=== PATIENT | female | born 1955 | race Caucasian/White ===

== ENCOUNTER 2016-11-28 08:00 | Inpatient (IN) | payer MEDICAID, OTHER ==
[2016-11-28] VITALS (12 sets, daily range): BP systolic 149–214; BP diastolic 68–129; PULSE 67–93; RESP 16–28; O2SAT 87–98
[~2016-11-28] VITALS: Ht 170.2 cm; Wt 82.9 kg
--- NOTE | 2016-11-28 08:03 | ED.REPORT ---
HPI-Stroke / CVA Nov 28, 2016 ED Provider: Renea Burton MD Pt is a 61 y.o. female with a hx of paroxysmal A-fib, COPD, and HTN who presents to the ED via EMS with aphasia her last known normal at 2100 yesterday. Pt woke up unable to speak, when EMS arrived on scene she was following commands. They state pt has been waxing and waning in understanding and cooperation. They also noted right-sided facial droop. Upon examination pt is able to nod her head yes and no to questions but still has expressive aphasia and right-sided facial droop. She is currently denying any pain. Pt is on Pradaxa. Nursing Notes Stated Complaint: POSS STROKE Chief Complaint: Neuro Symptoms/ Deficits Nursing Notes Reviewed: Yes Allergies: Coded Allergies: No Known Allergies (Unverified , 11/28/16) General Time Seen by Provider: 08:04 Chief Complaint Unable to speak Hx Obtained From: Daughter, EMS Unable to Obtain Hx: Patient condition Arrived By: Ambulance Time last known well 2099 Sudden in Onset?: Yes Context of Onset: During sleep Symptom Duration: Since onset Progression Since Onset: Unchanged, Constant Risk Factors )( TPA Administration/Criteria Stroke Thrombolytic Therapy : TPA Considered: Yes TPA Administered Intravenously: No, exclusion criteria (LKN 2100, Pradaxa) NIH Stroke Scale Level of Consciousness: Alert and responsive (0) Ask Month & Age: Aphasic (2) Open/Close Eyes/Hand [employer]: Performs 1 task (1) Horizontal EO Movements: None (0) Visual Angel: No visual loss (0) Facial Palsy: Minor paralysis (1) (Right) Right Arm Motor Drift (10s): Drift, not touch bed (1) Left Arm Motor Drift (10s): No drift 10 sec (0) Right Leg Motor Drift (5s): Drift, not touch bed (1) Left Leg Motor Drift (5s): No drift 5 sec (0) Limb Ataxia FNF/Heel-Feng: Ataxia in 2 limbs (2) (Receptive aphasia?) Sensation (Arms/Legs/Face): No sensory loss (0) Language Aphasia: Severe, fragmented (2) Dysarthria: Mute, anarthric (2) Extinction/Inattention: No exctinct/inattent (0) NIHSS Score: 12 Time NIHSS Performed: 08:47 Date NIHSS Performed: Nov 28, 2016 Past Medical History Past Medical History Reports: COPD, Hyperlipidemia, Hypertension Reports: Atrial fibrillation (Paroxysmal) Past Surgical History Reports: Hysterectomy Reports: Back/neck surgery Smoking History Current Every Day Smoker 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 Physical Exam Initial Vital Signs Vital Signs (First) Date Time Temp Pulse Resp B/P Pulse Ox O2 Delivery O2 Flow Rate FiO2 11/28/16 08:02 36.8 93 22 155/129 97 Room Air 11/28/16 10:05 2 Initial VS: Reviewed Abdomen / GI: No distention Extremities: Vascular intact, Neuro intact Skin: Warm, Dry, No cyanosis General/Constitutional: Awake, Alert, Well appearing, Well developed, Well hydrated, Well nourished, Not toxic appearing Behavior: Positive: Agitated Head / Eyes: Atraumatic, Normocephalic Right-sided facial droop Neck: Atraumatic Cardiovascular: Heart rate NL, Regular rhythm, Heart sounds NL, Peripheral circulation NL Speech: Positive: Expressive aphasia Cranial Nerve Deficit: Positive: 7 - lower/asymetric smile, 7 - upper/ asymetric frown Cerebellar Dysfunction: Positive: Finger-nose abnl NIH score of 12 Interpretation & Diagnostics Lab Results Interpretation Result Diagram: 11/28/16 0815 11/28/16 0815 Test 11/28/16 08:15 White Blood Count 12.3th/mm3 (3.8-10.1) Red Blood Count 5.11mil/mm3 (3.90-5.20) Hemoglobin 15.7g/dL (12.0-15.6) Hematocrit 47.3% (35.0-46.0) Mean Corpuscular Volume 92.6fL (81-100) Mean Corpuscular Hemoglobin 30.7pg (27.0-35.0) Mean Corpuscular Hemoglobin Concent 33.2% (32.0-37.0) Red Cell Distribution Width 13.2% (12.3-15.4) Platelet Count 291bil/L (150-400) Neutrophils (%) (Auto) 65.6% (40-74) Lymphocytes (%) (Auto) 25.3% (14-46) Monocytes (%) (Auto) 7.6% (4-12) Eosinophils (%) (Auto) 1.1% (0-5) Basophils (%) (Auto) 0.2% (0-3) Prothrombin Time 10.0sec (8.1-12.5) Prothromb Time International Ratio 0.94ratio Activated Partial Thromboplast Time 24.3sec (22.8-33.0) Sodium Level 136mEq/L (134-144) Potassium Level 5.3mEq/L (3.5-5.2) Chloride Level 96mEq/L (97-108) Carbon Dioxide Level 22mmol/L (18-29) Blood Urea Nitrogen 17mg/dL (8-27) Creatinine 0.67mg/dL (0.57-1.00) Estimat Glomerular Filtration Rate 129mL/min (>59) Glucose Level 122mg/dL (60-99) Calcium Level 9.7mg/dL (8.5-10.1) Total Bilirubin 0.3mg/dL (0.0-1.2) Aspartate Amino Transf (AST/SGOT) 33U/L (0-50) Alanine Aminotransferase (ALT/SGPT) 26U/L (0-32) Alkaline Phosphatase 105U/L (25-165) Troponin T 0.010ug/L (0.0-0.011) Total Protein 7.5g/dL (6.4-8.4) Albumin 4.3g/dL (3.4-5.0) ECG Interpretation ECG Interpretation: No ischemia Time: 11:43 Interpreted by: ED physician Normal ECG Interpretation: Normal ECG w/ rate of... (72), Normal rate, Normal sinus rhythm CT Head Interpretation PROCEDURE: CT ANGIO BRAIN NECK TPA IMPRESSION: 1. No acute intracranial abnormalities. 2. No hemodynamically significant lesions of the central intracranial vasculature. 3. 45-50% bilateral eccentric luminal stenosis of the proximal internal carotid arteries. 4. 2.8 cm irregular lateral right upper lobe nodule, suspicious for bronchogenic carcinoma. Additional 8 mm indeterminate medial right upper lobe nodule is also present. Findings were discussed with Dr. Burton by telephone at 1006 hr on 11/28/2016. Dictated by: Joe Davis M.D. on 11/28/2016 at 9:55 Approved by: Joe Davis M.D. on 11/28/2016 at 10:0 Re-Eval/Medical Decision Med Decision/Clinical Course 61-year-old woman presents with right sided facial droop right sided weakness and significant expressive aphasia. She awoke with symptoms so she is not a TPA candidate. She does have a history of paroxysmal atrial fibrillation and is unclear that she has been taking her anticoagulant regularly. She is in sinus rhythm on presentation this morning. Initial CT scan does not show any bleeding and follow-up CTA does not suggest any large vessel occlusions that might be amenable to percutaneous intervention. The CTA incidentally notes a spiculated greater than 2 cm nodule in the right upper lobe of her lung concerning for neoplasm. This is shared with her. Will need additional workup. Source of Hx: Old records Re-Evaluation/Progress #1: Time of Eval: 08:38 Re-Evaluation/Progress Note: Pt rechecked. Discussed CT imaging and performed NIH Stroke Scale. Re-Evaluation/Progress #2: Time of Eval: 10:28 Re-Evaluation/Progress Note: Pt rechecked. Discussed CT imaging results and plan for admit. Pt and family understand and agree with plan. Consultation : Referral / Consult Name: Bassam Harden MD Call Returned at: 11:31 Appliance Service Supervisor: Will see patient, Agrees with eval, Agrees with plan, Accepts admit Note: Discussed pt condition. Accepts admit. Counseled Regarding: Diagnosis, Lab results, Need for admission Patient Discharge & Departure Impression: Primary Impression: Stroke Additional Impression: Lung mass Disposition: ADMITTED TO HOSPITAL Discharge Condition All VS Reviewed: Yes Condition: Stable Scribe Attestation Portions of this note were transcribed by Maribel Turcios. I, Dr. Burton personally performed the history, physical exam and medical decision-making; I reviewed and confirmed the accuracy of the information in the transcribed note. Signed by: Khai Huitron, 11/28/16 and 1208 Renea Burton MD Nov 28, 2016 08:03 MARIBEL TURCIOS Nov 28, 2016 08:10
[2016-11-28] MEDS ORDERED: Labetalol 5 mg/mL 4 mL Inj IV PRN (08:10)
[2016-11-28 08:21] LABS: BASOPHILS % (AUTO) 0.2 % (0-3); EOSINOPHILS % (AUTO) 1.1 % (0-5); MONOCYTES % (AUTO) 7.6 % (4-12); Mean Corpuscular Hemoglobin 30.7 pg (27.0-35.0); Mean Corpuscular Volume 92.6 fL (81-100); NEUTROPHILS % (AUTO) 65.6 % (40-74); Platelet Count 291 bil/L (150-400)
[2016-11-28 08:45] LABS: INR 0.94 ratio
[2016-11-28 08:53] LABS: TROPONIN T 0.01 ug/L (0.0-0.011)
--- NOTE | 2016-11-28 10:08 | DRSVH ---
PROCEDURE: CT ANGIO BRAIN NECK TPA INDICATIONS: 61-year-old female with stroke symptoms. TECHNIQUE: After the administration of intravenous contrast, 1 mm thick sections acquired from the aortic arch t hrough the [place] of [place]. Post-contrast 4.5 mm thick sections then re-acquired from the foramen m agnum to the vertex. 3-dimensional ysvbequ-rqxjiruyh-czaiqeqkbs (MIP) and/or volume rendering reform ats were acquired of the central intracranial vasculature and neck separately. For radiation dose re duction, the following was used: automated exposure control, adjustment of mA and/or kV according to patient size. COMPARISON: None. FINDINGS: Image quality: Excellent. BRAIN: CSF spaces: Ventricles are normal in size and shape. Basal cisterns are patent. No extra-axial flu id collections. Brain: No midline shift. No intracranial bleeds or masses. Rendon-white matter interface appears int act. Skull and face: Calvarium and facial bones appear intact, without suspicious lesions. Orbits appear normal. Sinuses: Sinuses and mastoids are clear. HEAD CT ANGIOGRAPHY: Anterior circulation: Intracranial internal carotid arteries are normal in size and flow. The flow within the paired anterior cerebral arteries is normal and symmetric. The flow within the middle cer ebral arteries is normal and symmetric. The anterior communicating artery is seen. No aneurysms are seen. Posterior circulation: Visualized portions of the vertebral arteries demonstrate normal caliber, and join to form a normal appearing basilar artery. The left vertebral artery is dominant. Flow within the posterior cerebral arteries is normal and symmetric. No aneurysms are seen. NECK CT ANGIOGRAPHY: Carotid system: The great vessels demonstrate a conventional anatomy as they arise from the aortic a rc. The origins of the common carotid arteries appear patent. The common carotid arteries demonstr ate normal caliber and courses. There is calcified atherosclerotic plaque in both proximal internal carotid arteries, causing 45-50% luminal stenoses. The internal carotid arteries demonstrate normal calibers and courses more superiorly. Posterior circulation: The origins of the vertebral arteries both appear widely patent. The left ve rtebral artery is dominant. The more superior extracranial portions of both vertebral arteries also demonstrate normal courses and calibers. They join to form a normal appearing basilar artery. Soft tissues: Visualized neck soft tissues demonstrate no suspicious abnormalities. 2.8 x 2.7 x 2.0 cm irregular lateral right upper lobe nodule is present, demonstrating spiculated margins. A nearby medial right upper lobe 8 mm nodule is also present. Bones: No suspicious bony lesions. Visualized cervical spine appears normally aligned. IMPRESSION: 1. No acute intracranial abnormalities. 2. No hemodynamically significant lesions of the central intracranial vasculature. 3. 45-50% bilateral eccentric luminal stenosis of the proximal internal carotid arteries. 4. 2.8 cm irregular lateral right upper lobe nodule, suspicious for bronchogenic carcinoma. Additio nal 8 mm indeterminate medial right upper lobe nodule is also present. Findings were discussed with Dr. Burton by telephone at 1006 hr on 11/28/2016. Dictated by: Joe Davis M.D. on 11/28/2016 at 9:55 Approved by: Joe Davis M.D. on 11/28/2016 at 10:07
[2016-11-28] MEDS ORDERED: 0.9% Sodium Chloride 1,000 ML IV SCH ×2 (11:52→13:42)
[2016-11-28] MEDS ORDERED: Ondansetron 2 mg/mL 2 mL Inj IVPUSH PRN (11:55)
[2016-11-28] MEDS ORDERED: Polyethylene Glycol (PEG) 17 Gm Powder PO PRN (12:20)
[2016-11-28] MEDS ORDERED: Alum-Mag Hydrox-Simeth 30 mL Suspension PO PRN (12:20)
[2016-11-28] MEDS ORDERED: Labetalol 5 mg/mL 4 mL Inj IVPUSH PRN (12:20)
[2016-11-28] MEDS ORDERED: HYDROcodone-APAP 5-325 mg Tablet PO PRN (12:20)
[2016-11-28] MEDS ORDERED: Ondansetron 2 mg/mL 2 mL Inj IV PRN (12:20)
--- NOTE | 2016-11-28 12:59 | PCM.HPMED ---
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 fib who presented to the ED by EMS for evaluation of aphasia and right sided weakness. Her last known normal was 2100 yesterday per family. Patient woke up this morning and was unable to speak. When EMS was called, they noted that she was able to follow commands, and had a right-sided facial droop, but had severe expressive aphasia and was only able to answer questions by nodding her head. Of note, patient was recently diagnosed with atrial fibrillation, and is currently on Pradaxa, but may not be taking it consistently per daughter. In the ED her and NIHSS score was noted to be 12. TPA was not administered due to patient being on Pradaxa and uncertain timeframe. Her vital signs were stable with blood pressures in the 160 systolic and O2 saturation of 98% on room air. Her CBC and CMP were unremarkable. She was administered aspirin UT due to her severe dysarthria and risk of aspiration. She had a CTA of brain and neck revealed no acute intracranial abnormalities, but there was incidental findings of 2.8 cm irregular right upper lobe nodule along with an 8 mm indeterminate medial right upper lobe nodule, both concerning for bronchogenic carcinoma. These results were relayed to the patient and her family. During this examination, patient continued to be severely dysarthric and aphasic , with noticeable right facial droop, and right-sided weakness. She denied any pain, and daughter did not report any recent illnesses or surgical procedures. 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 Hx Alcohol Use: Yes Alcoholic Drinks Per Day: 6 cans of Lion Lite daily Hx Substance Use: No Hx Tobacco Use: Yes Smoking Status: Current Every Day Smoker (currently at half pack per day) Living Arrangement: with Family Exam Vital Signs Vital Sign - Last Date Time Temp Pulse Resp B/P Pulse Ox O2 Delivery O2 Flow Rate FiO2 11/28/16 12:37 67 11/28/16 12:20 36.6 20 178/91 95 Room Air 11/28/16 11:34 1 Exam Gen.: Well-developed female who appears frustrated at not being able to talk, she is alert, but unable to answer orientation questions HEENT: Normocephalic, atraumatic, PERRLA, EOMI, mild right facial droop, right- sided luis manuel-neglect noted, tongue with mild deviation to the right, oropharynx moist and pink Neck: Soft, nontender, trachea midline CV: RRR, soft systolic murmur noted, peripheral pulses intact and equal, no JVD noted Respiratory: CTA B/l, normal respiratory effort, normal chest Abdomen: Soft, nontender, nondistended, normoactive bowel sounds noted MSK: Mild drift of right arm and right leg but does not touch bed, left upper and lower extremities with full strength. No tender or swollen joints, no edema noted Neuro: Alert and oriented, severely dysarthric, only able to make grunting sounds. Mild right facial droop, decreased sensation of right face, decreased tone of right masseter, abnormal FNF exam and Heel-Feng exam, gait not tested. Skin: Warm, dry, intact, no rashes noted Psych: Interactive but very frustrated, family notes that she is very humorous at baseline Lab and Diagnostics Result Diagram: 11/28/16 0815 11/28/16 0815 X-Rays, CTs and MRIs CTA head neck IMPRESSION: 1. No acute intracranial abnormalities. 2. No hemodynamically significant lesions of the central intracranial vasculature. 3. 45-50% bilateral eccentric luminal stenosis of the proximal internal carotid arteries. 4. 2.8 cm irregular lateral right upper lobe nodule, suspicious for bronchogenic carcinoma. Additional 8 mm indeterminate medial right upper lobe nodule is also present. 12-lead ECG NSR rate of 72 Assessment & Plan 61 yo F with history of COPD, hypertension, hyperlipidemia, tobacco dependence, and recently diagnosed paroxysmal A. fib who presented to the ED by EMS for evaluation of acute onset of aphasia and right sided weakness. # Acute CVA, present on admission Patient presented with symptoms of right-sided weakness, aphasia, dysarthria, and right facial droop likely represents a fairly large CVA Initial NIHSS 12,tpa not given due to unknown last known well and patient on Pradaxa There was no acute bleeding demonstrated on initial CTA and CT of brain and neck , but due to severity of presenting symptoms, we will monitor closely for hemorrhagic transformation. Aspirin when necessary administered, will continue with daily aspirin, uncertain if patient was taking it consistently We will allow for permissive hypertension for 24 hours. Labetalol 10 mg IV when necessary for hypertension greater than 220/110 Close neuro monitoring MR stroke protocol ordered, complete echocardiogram ordered Speech therapy to perform swallow evaluation IV NS 100mls/hr while NPO PT/OT evaluation and recommendation Ativan 1 mg prn anxiety # chronic COPD, POA Currently stable without exacerbation We will continue patient's home inhalers after medication reconciliation We will add on DuoNeb Q6h Patient saturations have been fairly normal on room air #Right lung mass, POA,NEW DIAGNOSIS Spiculated right upper lobe lesion likely representing a malignant mass. We will need further workup and imaging in due time patient had contrast CT today, consider doing dedicated CT abd chest with contrast on Wednesday.also consider consulting oncology and IR for biopsy #Paroxysmal atrial fibrillation, POA Currently regular. We will monitor on telemetry We will need to discuss other anticoagulation options if patient is not compliant on her Pradaxa due to copay #Essential hypertension, POA Hold hypertensive medication for 24 hours #Hyperlipidemia, POA We will continue with atorvastatin 40 mg at bedtime Lipid panel in a.m. #Tobacco dependence, POA Encourage tobacco cessation Nicotine patch PRN Tylenol prn fever/pain Zofran prn nausea Bowel Regimen prn constipation CODE STATUS: Full resuscitation Admission status: Patient is admitted under inpatient status with expected length of stay greater than 2 nights due to patient's medical complexity and risk of adverse events Pain Evaluation: Adequate Pain Control VTE Prophylaxis: Sub-Q Enoxaparin Resuscitation Status: CPR: Attempt Resuscitation Time spent 55 minutes Attending Statement The patient was seen and examined independently on 11/28/2016 and case discussed with , I agree with the history, exam and plan as outlined in the note above. copies to: Nathaniel Longo MD ArellanoMoe DO Nov 28, 2016 12:59 Bassam Harden MD Nov 28, 2016 14:03
--- NOTE | 2016-11-28 13:11 | NUR ---
ADMIT Admitted a 61/F into room 3002 following report from ED RN Smooth Caballero. Pt arrived via w/c, able to amb from w/c to bed with SBA. Unsteady on her feet and impulsive. Pt aphasic, attempting to speak but unable. She occasionally is able to say a word "no" or "okay." Pt becoming increasingly frustrated with inability to communicate clearly. Pt given picture board, a pen/paper, her phone in an attempt to type out needs and unable to utilize any of the above. Dtr and son in law at bedside and attempting to help pt communicate. She is on RA, no indicators of SOB noted. She is a current smoker. RUE scientific editor is weaker than LUE, R sided facial droop noted and slight tongue deviation noted. Bilat LE's have equal strength, however pt is unsteady when up. Bed alarm on for safety. She adamantly denies any pain/discomfort. IV flushing easily. Pt and family introduced to staff, bed controls, call light and aware to call for any needs. Currently working with PT.
--- NOTE | 2016-11-28 14:07 | NUR ---
Evaluation completed. Please go to "Notes" then click on "Assessments and Notes" (bottom left corner of screen). Then select appropriate discipline tab on top of screen.
--- NOTE | 2016-11-28 14:19 | NUR ---
Evaluation completed. Please go to "Notes" then click on "Assessments and Notes" (bottom left corner of screen). Then select appropriate discipline tab on top of screen.
--- NOTE | 2016-11-28 14:37 | NUR ---
MRI Resident doctor aware r/t patient went for MRI and off of Telemetry. PRN anti anxiety given as ordered for anxiety prior to MRI. Daughter at bed side.
--- NOTE | 2016-11-28 16:07 | DRSVH ---
PROCEDURE: MRI BRAIN WITHOUT CONTRAST ([id number]) INDICATIONS: right sided weakness TECHNIQUE: Noncontrast axial T1 spin echo, axial T2 fast spin echo, sagittal and axial FLAIR, coronal T2 fast sp in echo, axial gradient echo, axial diffusion and ADC through the brain. COMPARISON: [facility], CT, CT ANGIO BRAIN NECK TPA, 11/28/2016, 9:25. FINDINGS: Image quality: There is motion artifact limiting evaluation. CSF Spaces: Basal cisterns are patent. No extra-axial fluid collections. There is mild cerebral vo lume loss with prominence of the ventricles and sulci. Brain: There are is a region of cortical restricted diffusion demonstrated within the left temporal lobe within the middle cranial fossa with mild corresponding T2 hyperintensity and cortical thickenin g. Findings are consistent with an acute to subacute infarct. No definite evidence of associated he morrhagic conversion. There is a linear region of GRE susceptibility extending to the temporal lobe which may represent a small thrombosed vessel. Elsewhere, no definite intracranial hemorrhage, mass, or mass effect. There are prominent perivascular Virchow-Richard spaces in the basal ganglia. Skull and face: Calvarium has normal marrow signal. Orbits appear normal. Sinuses: There is partial fluid opacification of the mastoid air cells, right greater than left, sugg esting mild mastoiditis. Paranasal sinuses are clear. IMPRESSION: 1. Acute to early subacute cortical infarct involving the left temporal lobe within the middle crania l fossa. No definite evidence of hemorrhagic conversion. 2. Suggestion of a small thrombosed vessel extending to this region, likely corresponding to an M2/ M3 branch of the left middle cerebral artery. Findings discussed with Dr. Harden on 11/28/16 at 4 PM. Dictated by: Saad Reese M.D. on 11/28/2016 at 16:06 Approved by: Saad Reese M.D. on 11/28/2016 at 16:06
[2016-11-28] MEDS ORDERED: METO-274 PO (16:20)
[2016-11-28] MEDS ORDERED: FLUO10CA20 PO (16:22)
[2016-11-28] MEDS ORDERED: BIMA2.5D5 BOTH_EYES (16:24)
[2016-11-28] MEDS ORDERED: ALBU90AE IH (16:28)
[2016-11-28] MEDS ORDERED: DILT180C47 PO (16:30)
[2016-11-28] MEDS ORDERED: SALM50DI IH (16:34)
[2016-11-28] MEDS ORDERED: Albuterol HFA 60 Puff 8 Gm Inhaler INHALATION PRN (16:50)
[2016-11-28] MEDS ORDERED: Albuterol 2.5 mg/3 mL Inhalation Solution NEB PRN (17:00)
--- NOTE | 2016-11-28 17:12 | NUR ---
Allergy per sister patient is allergic to some Glaucoma eye drops and states," do not substitute with any other glaucoma medications." patient currently taking Lumigan and she is NOT allergic to it. called and notified pharmacy. per pharmacy send patients home medication. Sent to pharmacy Lumigan brand new sealed bottle. patient and daughter aware. family will call eye doctor and get eye drops allergy list on wednesday.
--- NOTE | 2016-11-28 17:36 | NUR ---
NUTRITION ASSESSMENT: ASSESS:61 YO female admitted for evaluation of acute onset of aphasia and right sided weakness, representing a fairly large CVA, per provider. New diagnosis of right lung mass as well. Diet unable to be advanced by Speech Therapy. Code status: full. PMHx:COPD, HTN, dyslipidemia, A-fib. DIET:NPO. LABS: K+ 5.3, Chloride 96, Glu 122, A1c pending. MEDICATIONS: Reviewed. NUTRITION FOCUSED PHYSICAL ASSESSMENT: GI symptoms / stool: No stoolBraden: 16. Skin Integrity: No issues reported. ANTHROPOMETRICS: Current Wt: 87.3 kgBMI: 30.1 kg/m2. IBW: 61.4 kg (142.3 % IBW) ESTIMATED NEEDS (OBESITY): Calories: 1350 - 1534 kcal (22 - 25 kcal / kg IBW) Protein: 74 - 92 g protein 1.2 - 1.5 g / kg IBW) Fluid: Approx. 2619 mL (30 mL / kg BW) NUTRITION DIAGNOSIS: 1)Chewing / swallowing difficulties related to large CVA, as evidenced by inability to advance diet beyond NPO status. INTERVENTION: 1) Patient is full code. Recommend provider discuss long-term feeding with patient in the event diet unable to be advanced near future. MONITOR/EVALUATE: Diet advance / tolerance, PO intake, labs, GI/nutrition status. Follow up per high nutrition risk guidelines.
[2016-11-28] MEDS: Salmeterol 50 mcg/Puff 28 Inhalation Diskus INHALATION SCH (20:30)
[2016-11-28] MEDS: Diltiazem CD 180 mg ER24 Capsule PO SCH (20:30)
[2016-11-28] MEDS ORDERED: DILTIAZEM 180 MG PO SCH (20:30)
[2016-11-28] MEDS: MeTOProlol XL 50 mg ER24 Tablet PO SCH (20:30)
[2016-11-28] MEDS: LUMIGAN 0.01% BOTH_EYES SCH (20:53)
[2016-11-29] VITALS (13 sets, daily range): BP systolic 99–167; BP diastolic 70–92; PULSE 58–162; RESP 16–28; O2SAT 91–95
[2016-11-29] MEDS ORDERED: Diltiazem 5 mg/mL 5 mL Inj IVPUSH ONE ×3 (01:55→07:30)
[2016-11-29 05:18] LABS: BASOPHILS % (AUTO) 0.4 % (0-3); MONOCYTES % (AUTO) 9.1 % (4-12); Mean Corpuscular Hemoglobin 30.9 pg (27.0-35.0); Mean Corpuscular Volume 93.2 fL (81-100); NEUTROPHILS % (AUTO) 70.2 % (40-74); Platelet Count 258 bil/L (150-400)
--- NOTE | 2016-11-29 06:04 | NUR ---
Neuro/A-fib Pt has expressive aphasia, right hospital admissions officer weakness, slight right facial droop, up to bathroom with 1 person assist, steady on feet. At shift change pt was having increased agitation while trying to communicate. Pt able to say yes and no, repeating the words boy and toy. Pt restless, medicated pt with 1 mg IV ativan. Pt resting in bed after medication admin. Pt then up to bathroom at 0000, pt continued to be restless in bed, pt's daughter requesting pt have another dose of ativan at that time. Medicated pt with 1 mg IV ativan. Pt resting in bed with eyes closed after medication admin. At 0145 pool technician called, pt converted to A-fib RVR with HR 140-150. EKG ordered. Resident paged. Placed pt on MP30. 20 mg IV cardizem given per MD orders. Pt's HR decreased to 100's-120's after medication admin. Pt's heart rate continuing to increase with wide range 100-140's. Resident paged. Pt given another 20mg IV cardizem. Pt's heart rate decreased to 90's-120's up to 130's. Will continue to monitor heart rate. Call light within reach, frequent rounding, bed alarm, daughter at bedside.
[2016-11-29] MEDS: Salmeterol 50 mcg/Puff 28 Inhalation Diskus INHALATION SCH ×2 (07:40→20:13)
[2016-11-29] MEDS: Diltiazem CD 180 mg ER24 Capsule PO SCH ×2 (07:41→20:11)
[2016-11-29] MEDS: MeTOProlol XL 50 mg ER24 Tablet PO SCH ×3 (07:41→20:14)
[2016-11-29] MEDS: Albuterol-Ipratropium 3 mL Inhalation Solution NEB PRN ×2 (07:52→17:53)
[2016-11-29] MEDS ORDERED: Non-Formulary Medication (Metoprolol Succinate ER 100 MG) PO SCH (08:30)
[2016-11-29] MEDS ORDERED: Diltiazem Inj 125 MG in 0.9% Sodium Chloride 100 ML, Pharmacy To Mix 1 EA IV SCH (08:50)
--- NOTE | 2016-11-29 10:19 | PCM.PNMED ---
Subjective Date of Service Nov 29, 2016 Subjective patient kept NPO due to dysphagia and missed home cardizem. went into RVR rate in 140's overnight ,not responding to intermittent cardizem pushes.transferred to [facility] for drip.neuro exam unchanged ,NIHSS at 12. Exam Vital Signs Vital Sign - Last Date Time Temp Pulse Resp B/P Pulse Ox O2 Delivery O2 Flow Rate FiO2 11/29/16 08:33 133 11/29/16 07:52 22 92 Room Air 11/29/16 05:03 36.9 163/89 11/28/16 23:40 2.00 Intake and Output 11/28/16 11/28/16 11/29/16 Cumulative From/Thru 15:00 23:00 07:00 11/28/16 08:02 - 11/29/16 06:23 Intake Total 0 ml 1447 ml 1447 ml Balance 0 ml 1447 ml 1447 ml Intake Oral 0 ml 0 ml IV Total 1447 ml 1447 ml # Voids 1 1 # Bowel Movements 0 0 Exam Gen.: Well-developed female who appears frustrated at not being able to talk, she is alert, but unable to answer orientation questions HEENT: Normocephalic, atraumatic, PERRLA, EOMI, mild right facial droop, right- sided luis manuel-neglect noted, tongue with mild deviation to the right, oropharynx moist and pink Neck: Soft, nontender, trachea midline CV: rapid Afib, soft systolic murmur noted, peripheral pulses intact and equal, no JVD noted Respiratory: CTA B/l, normal respiratory effort, normal chest Abdomen: Soft, nontender, nondistended, normoactive bowel sounds noted MSK: Mild drift of right arm and right leg but does not touch bed, left upper and lower extremities with full strength. No tender or swollen joints, no edema noted Neuro: Alert ,aphasic , severely dysarthric, only able to make grunting sounds. Mild right facial droop, decreased sensation of right face, decreased tone of right masseter, abnormal FNF exam and Heel-Feng exam, gait not tested.right hemiparesis power 4/5 on RUE and RLE NIHSS 12 Skin: Warm, dry, intact, no rashes noted Psych: Interactive but very frustrated, family notes that she is very humorous at baseline IVs and Medications Medications Reviewed: Medications were reviewed in detail Lab and Diagnostics Result Diagram: 11/29/16 0450 11/29/16 0450 X-Rays, CTs and MRIs CTA head neck IMPRESSION: 1. No acute intracranial abnormalities. 2. No hemodynamically significant lesions of the central intracranial vasculature. 3. 45-50% bilateral eccentric luminal stenosis of the proximal internal carotid arteries. 4. 2.8 cm irregular lateral right upper lobe nodule, suspicious for bronchogenic carcinoma. Additional 8 mm indeterminate medial right upper lobe nodule is also present. MRI 11/28/16 IMPRESSION: 1. Acute to early subacute cortical infarct involving the left temporal lobe within the middle cranial fossa. No definite evidence of hemorrhagic conversion. 2. Suggestion of a small thrombosed vessel extending to this region, likely corresponding to an M2/M3 branch of the left middle cerebral artery. Findings discussed with Dr. Harden on 11/28/16 at 4 PM. Dictated by: Saad Reese M.D. on 11/28/2016 at 16:06 Approved by: Saad Reese M.D. on 11/28/2016 at 16:06 ADDENDUM: There is a small 4 mm aneurysm in the proximal M2 segment of the left middle cerebral artery. Findings discussed with Dr. Harden on 11/28/16 at 5:30 PM. Dictated by: Saad Reese M.D. on 11/28/2016 at 17:34 Approved by: Saad Reese M.D. on 11/28/2016 at 17:34 12-lead ECG NSR rate of 72 on admission Assessment & Plan 61 yo F with history of COPD, hypertension, hyperlipidemia, tobacco dependence, and recently diagnosed paroxysmal A. fib who presented to the ED by EMS for evaluation of acute onset of aphasia and right sided weakness. # Acute CVA, present on admission Patient presented with symptoms of right-sided weakness, aphasia, dysarthria, and right facial droop likely represents a fairly large CVA Initial NIHSS 12,tpa not given due to unknown last known well and patient on Pradaxa There was no acute bleeding demonstrated on initial CTA and CT of brain and neck , but due to severity of presenting symptoms, we will monitor closely for hemorrhagic transformation. Aspirin when necessary administered, will continue with daily aspirin, rectal ASA for now will consider NGT for po medication if fails swallow eval by therapist We will allow for permissive hypertension for 24 hours. Labetalol 10 mg IV when necessary for hypertension greater than 220/110 Close neuro monitoring MR stroke protocol as above with acute stroke, complete echocardiogram ordered Speech therapy to perform swallow evaluation IV NS 100mls/hr while NPO PT/OT evaluation and recommendation Ativan 1 mg prn anxiety #Right lung mass, POA,NEW DIAGNOSIS Spiculated right upper lobe lesion likely representing a malignant mass. We will need further workup and imaging in due time patient had contrast CT 11/28, consider doing dedicated CT abd /pelvis/ chest with contrast on Wednesday.also consider consulting oncology and IR for biopsy #Paroxysmal atrial fibrillation with RVR , POA patient NPO and went to RVR We will monitor on telemetry We will need to discuss other anticoagulation options if patient is not compliant on her Pradaxa due to copay [facility] neurology recommend restarting anticoagulation after 10 days of stroke # left middle cerebral artery aneurysm -neurology recommends outpatient neurosurgical evaluation -can as well be the source of clot which caused CVA given same distribution # subclinical hypothyroidism -TSH 7.8,FT4 1.11 -may need to repeat TFT in few weeks # chronic COPD, POA Currently stable without exacerbation We will continue patient's home inhalers after medication reconciliation We will add on DuoNeb Q6h Patient saturations have been fairly normal on room air #Essential hypertension, POA Hold hypertensive medication for 24 hours #Hyperlipidemia, POA We will continue with atorvastatin 40 mg at bedtime Lipid panel in a.m. #Tobacco dependence, POA Encourage tobacco cessation Nicotine patch PRN Tylenol prn fever/pain Zofran prn nausea Bowel Regimen prn constipation CODE STATUS: Full resuscitation updated daughter at bed side Admission status: Patient is admitted under inpatient status with expected length of stay greater than 2 nights due to patient's medical complexity and risk of adverse events VTE Prophylaxis: Sub-Q Enoxaparin VTE Mechanical Devices: Intermittant Pneumatic CD Resuscitation Status: CPR: Attempt Resuscitation Bassam Harden MD Nov 29, 2016 10:19
--- NOTE | 2016-11-29 14:45 | NUR ---
Social work: initial Assessment Data & Assessment: See Initial Assessment. EMR reviewed. Patient is a 61 y/o female that admitted on 11/28/16 with stroke and new lung mass. SW met with patient and patient's family at bedside to discuss discharge planning, complete initial assessment and SW role reviewed. Patient's NOK is [facility] [phone]. Patient does not have an Advance Directive/DPOA SW provided patient and family with the information. Patient has a re-admit score of 1-no risk. Patient's PCP is Dr. Silver hardin and [facility]. insurance. Patient has no VA or LTC benefits. Patient lived at home with her sister in a one story home with two steps to enter where she was independent with ADL's prior to admission. Patient has no DME and does drive. Patient has no SNF or HH history. SW notified patient and patient's family that PT recommended Inpatient rehab and provided them with a choice list. Patient's family chose [place] inpatient rehab. Patient's family chose [facility] SNF as an option if patient is unable to discharge to inpatient rehab. SW referred patient to [place] [facility] and the confirmed receiving. SW will continue to follow and assist patient and family with discharge planning needs. SW provided phone number and plan on white board in room. SW will continue to follow. Plan: Patient is likely to discharge to inpatient rehab or SNF. SW will continue to follow patient for discharge planning needs. Mary Jane Montesinos LMSW, KRISTIN Addendum: 11/29/16 at 1500 by MARY JANE FRANCO Amended: Links added.
--- NOTE | 2016-11-29 18:27 | NUR ---
[place] [facility]Neuro Patient transferred to 2029 [place] [facility] [place]. Awake, anxious and restless. Neuro's with mild right UE weakness, slight right side facial droop and aphasia. Patient oob to bs with min to one person assist, mesha well. Patient appears a/o, able to answer yes/no questions but becomes frustrated easily when she cant express her words. Tele A fib 120-170's apon arrival to floor. Dilt gtt started and increased to max dose of 15 mg/hr, tele remains A fib 100-140's. Patient seen by speech therapy and advanced to [facility] dysph diet. MD notified and patient restarted on oral Metoprolol. Tele A fib < 100 min, Dilt gtt titrated off at 1800. Tele A fib 60-80's. Will cont to monitor.
[2016-11-29] MEDS: LUMIGAN 0.01% BOTH_EYES SCH (20:14)
[2016-11-30] VITALS (12 sets, daily range): BP systolic 151–187; BP diastolic 78–93; PULSE 54–74; RESP 16–22; O2SAT 92–97
[2016-11-30] MEDS: Salmeterol 50 mcg/Puff 28 Inhalation Diskus INHALATION SCH ×2 (08:21→20:27)
--- NOTE | 2016-11-30 09:06 | DRSVH ---
CORRECTED PATIENT NAME AND MR NUMBER ON 11/30/16 PROCEDURE: CT BRAIN WITHOUT CONTRAST ([id number]) INDICATIONS: 51-year-old female with possible stroke. TECHNIQUE: Noncontrast 4.5 mm thick angled axial sections acquired from the foramen magnum to the vertex, with c oronal reformats. COMPARISON: None. FINDINGS: Image quality: Excellent. CSF spaces: Basal cisterns are patent. No extra-axial fluid collections. Ventricles are normal in size and shape. Brain: No midline shift. No intracranial masses or hemorrhage. Rendon-white matter interface is norm al. There is patchy intracranial internal carotid artery atherosclerosis. Skull and face: Calvarium and visualized facial bones are intact, without suspicious lesions. Sinuses: Visualized sinuses and mastoids are clear. IMPRESSION: No acute intracranial abnormalities. Dictated by: Joe Davis M.D. on 11/28/2016 at 8:45 Approved by: Joe aDvis M.D. on 11/28/2016 at 8:46
[2016-11-30] MEDS: Albuterol-Ipratropium 3 mL Inhalation Solution NEB PRN ×2 (09:31→17:34)
--- NOTE | 2016-11-30 10:56 | NUR ---
Gave access and faxed facesheet to [employer] MSW
--- NOTE | 2016-11-30 12:58 | PCM.PNMED ---
Subjective Date of Service Nov 30, 2016 Subjective Expressive aphasia, ROS and S not obtainable. Exam Vital Signs Vital Sign - Last Date Time Temp Pulse Resp B/P Pulse Ox O2 Delivery O2 Flow Rate FiO2 11/30/16 11:52 36.9 57 20 187/78 96 Room Air 11/30/16 08:11 2.00 Intake and Output 11/29/16 11/29/16 11/30/16 Cumulative From/Thru 15:00 23:00 07:00 11/28/16 08:02 - 11/30/16 05:56 Intake Total 0 ml 963 ml 1184 ml 3594 ml Output Total 800 ml 575 ml 600 ml 1975 ml Balance -800 ml 388 ml 584 ml 1619 ml Intake Oral 0 ml 60 ml 100 ml 160 ml IV Total 903 ml 1084 ml 3434 ml Output Urine Total 800 ml 575 ml 600 ml 1975 ml # Voids 3 4 # Bowel Movements 0 0 Exam Alert, calm. No distress. Anicteric sclera Lungs with normal effort and rate. Pulses regular Abdomen non distended. No edema Normal joints Normal gait and extremity strength. IVs and Medications Medications Reviewed: Medications were reviewed in detail Lab and Diagnostics Result Diagram: 11/29/16 0450 11/29/16 0450 X-Rays, CTs and MRIs CTA head neck IMPRESSION: 1. No acute intracranial abnormalities. 2. No hemodynamically significant lesions of the central intracranial vasculature. 3. 45-50% bilateral eccentric luminal stenosis of the proximal internal carotid arteries. 4. 2.8 cm irregular lateral right upper lobe nodule, suspicious for bronchogenic carcinoma. Additional 8 mm indeterminate medial right upper lobe nodule is also present. MRI 11/28/16 IMPRESSION: 1. Acute to early subacute cortical infarct involving the left temporal lobe within the middle cranial fossa. No definite evidence of hemorrhagic conversion. 2. Suggestion of a small thrombosed vessel extending to this region, likely corresponding to an M2/M3 branch of the left middle cerebral artery. Findings discussed with Dr. Harden on 11/28/16 at 4 PM. Dictated by: Saad Reese M.D. on 11/28/2016 at 16:06 Approved by: Saad Reese M.D. on 11/28/2016 at 16:06 ADDENDUM: There is a small 4 mm aneurysm in the proximal M2 segment of the left middle cerebral artery. Findings discussed with Dr. Harden on 11/28/16 at 5:30 PM. Dictated by: Saad Reese M.D. on 11/28/2016 at 17:34 Approved by: Saad Reese M.D. on 11/28/2016 at 17:34 12-lead ECG NSR rate of 72 on admission Assessment & Plan 61 yo F with history of COPD, hypertension, hyperlipidemia, tobacco dependence, and recently diagnosed paroxysmal A. fib who presented to the ED by EMS for evaluation of acute onset of aphasia and right sided weakness. # Acute left MCA embolic CVA, present on admission Patient presented with symptoms of right-sided weakness, aphasia, dysarthria, and right facial droop likely represents a fairly large CVA Initial NIHSS 12,tpa not given due to unknown last known well and patient on Pradaxa There was no acute bleeding demonstrated on initial CTA and CT of brain and neck , but due to severity of presenting symptoms, we will monitor closely for hemorrhagic transformation. Aspirin when necessary administered, will continue with daily aspirin, rectal ASA for now will consider NGT for po medication if fails swallow eval by therapist We will allow for permissive hypertension for 24 hours. Labetalol 10 mg IV when necessary for hypertension greater than 220/110 Close neuro monitoring MR stroke protocol as above with acute stroke, complete echocardiogram ordered Speech therapy to perform swallow evaluation IV NS 100mls/hr while NPO PT/OT evaluation and recommendation Ativan 1 mg prn anxiety Continue current meds, she will need coumadin in 2 weeks. Recent ECHO with bubble was negative. Start lisinopril at 10 mg daily. #Right lung mass, POA,NEW DIAGNOSIS Spiculated right upper lobe lesion likely representing a malignant mass. We will need further workup and imaging in due time patient had contrast CT 11/28, consider doing dedicated CT abd /pelvis/ chest with contrast on Wednesday.also consider consulting oncology and IR for biopsy CT Chest and abdomen for evidence of other tumors. #Paroxysmal atrial fibrillation with RVR , POA patient NPO and went to RVR We will monitor on telemetry We will need to discuss other anticoagulation options if patient is not compliant on her Pradaxa due to copay [place] neurology recommend restarting anticoagulation after 10 days of stroke # left middle cerebral artery aneurysm -neurology recommends outpatient neurosurgical evaluation -can as well be the source of clot which caused CVA given same distribution Consider coumadin in 2 weeks, ASA until then. # subclinical hypothyroidism -TSH 7.8,FT4 1.11 -may need to repeat TFT in few weeks # chronic COPD, POA Currently stable without exacerbation We will continue patient's home inhalers after medication reconciliation We will add on DuoNeb Q6h Patient saturations have been fairly normal on room air #Essential hypertension, POA Hold hypertensive medication for 24 hours, start lisinopril today at 10 mg #Hyperlipidemia, POA We will continue with atorvastatin 40 mg at bedtime Lipid panel in a.m. #Tobacco dependence, POA Encourage tobacco cessation Nicotine patch PRN Tylenol prn fever/pain Zofran prn nausea Bowel Regimen prn constipation CODE STATUS: Full resuscitation updated daughter at bed side Admission status: Patient is admitted under inpatient status with expected length of stay greater than 2 nights due to patient's medical complexity and risk of adverse events Dsicharge planning: Rehab verses SNF. Preauth pending. Pain Evaluation: Adequate Pain Control VTE Prophylaxis: Sub-Q Enoxaparin VTE Mechanical Devices: Intermittant Pneumatic CD Resuscitation Status: CPR: Attempt Resuscitation Time spent 30 min Donnell Vo MD Nov 30, 2016 12:58
--- NOTE | 2016-11-30 15:17 | NUR ---
Social Work Note: Continued Discharge Planning SW received phone call from Susy in admissions at [facility] explaining they will be able to accept pt when she is medically ready with Dr. Min to follow. SW to continue to follow. DORIS Guadarrama
--- NOTE | 2016-11-30 18:06 | NUR ---
Nuero/Activity/CT scan/HTN Patient aphasic, able to answer yes/no questions and pronounce an occassional word. Patient becomes frustrated easily when unable to make needs known. Nuero's right side facial droop and right fast food cashier weaker then left. Patient oob amb in room and noyola with sba. Family at bedside assisting with ADL's. Patient SBP 170-180's HR 50's, Dr Vo notified and new med started. Patient npo this afternoon and down to CT scan. Tele SB 50's. Will cont poc.
--- NOTE | 2016-11-30 19:27 | DRSVH ---
PROCEDURE: CT CHEST, ABDOMEN AND PELVIS [facility] CONTRAST ([id number]) INDICATIONS: lung mass TECHNIQUE: After the administration of oral and intravenous contrast, 5 mm thick sections acquired from the lung apices to the symphysis. 5 mm coronal and sagittal reformats were performed, with additional 7 mm c oronal MIP reformats through the lungs. For radiation dose reduction, the following was used: autom ated exposure control, adjustment of mA and/or kV according to patient size. COMPARISON: [facility], CT, CT ANGIO BRAIN NECK TPA, 11/28/2016, 9:25. FINDINGS: Image quality: Excellent. CHEST: Base of the neck: there is abnormal adenopathy just lateral to the left common carotid artery at the level of the thyroid. Lungs and pleura: No acute airspace opacities. There is a mass in the right upper lobe anterolateral ly which measures approximately 27 x 23 x 26 mm. There is stranding to the pleural surface but no los s of fat planes is appreciated or destruction of chest wall is appreciated. Slightly posterior and me dial is a second mass which measures approximately 20 x 6 x 11 mm in size in the right upper lobe. Th is would be suspicious for a second lesion or a metastatic lesion. In addition there are scattered sm all 4-5 mm densities in the periphery of both lungs. These could be old granulomatous lesions or smal l peripheral metastases. No pleural effusions or pneumothorax. Central and peripheral airways appear patent and normal in caliber. Mediastinum: Heart size is normal. No pericardial effusion. There is mediastinal and right hilar ad enopathy by size criteria. Anterior and superior to the right main pulmonary artery is a 14 x 18 mm a bnormal lymph node. At the level of the amari and series 2 image 18 is a 18 x 17 mm abnormal lymph n ode. There are right paratracheal abnormal lymph nodes. Thoracic aorta and central pulmonary arteries are normal in size. Esophagus is normal in caliber. No hiatal hernia. Chest wall: No axillary or supraclavicular adenopathy by size criteria. Thyroid gland is within nor mal limits. ABDOMEN: Solid organs: The liver is considered normal in size. It is diffusely mildly heterogeneous in contras t enhancement. Ultrasound to evaluate texture would be useful. There is a very high area of attenuati on in the periphery of the right lobe of the liver probably a flash filling hemangioma 14 mm in size. In addition there is a cyst in the right lobe measuring 68 mm in greatest dimension just posterior t o the gallbladder fossa.. Gallbladder is within normal limits. Biliary system is non dilated. Panc reas enhances normally. Question of 14 mm nodule in the left adrenal.. Kidneys demonstrate normal s ize. There is no hydronephrosis. There are areas of loss of cortex and loss of cortical medullary nelson ction suggesting previous focal areas of infection or infarct. These findings are bilateral. Peritoneum and bowel: Bowel loops demonstrate normal wall thickness and caliber. No free fluid or a ir. Nodes and vessels: No retroperitoneal or mesenteric adenopathy by size criteria. Aorta and inferior vena cava are normal in size. Miscellaneous: No ventral hernias. PELVIS: Genitourinary: Bladder is not sufficiently distended to evaluate. Miscellaneous: No inguinal hernias or adenopathy. Bones: No suspicious bony lesions. No vertebral body compression fractures. IMPRESSION: 1. At least 2 abnormal lesions are present in the right upper lobe. The smaller is potentially a seco nd primary or metastatic lesions. 2. Right hilar and mediastinal adenopathy is present. 3. Adenopathy in the base of the neck on the left side is present. 4. Question of small 4 or 5 mm metastatic lesions versus old granulomatous lesions in the lung. 5. Heterogeneous enhancement pattern to the liver possibly because of arterial phase enhancement. Ult rasound is suggested as multiple small metastatic lesions could have a similar appearance. 6. Right enhancing 14 mm lesion in the periphery of the right upper lobe of the liver most consistent with a flash filling hemangioma. There is a 6-7 cm cyst in the liver just posterior to the gallbladd er fossa. 7. Suggestion of sludge in the gallbladder. 8. Small left adrenal nodule of unknown significance. 9. Bilateral renal focal cortical loss and loss of definition of corticomedullary junction suggesting old inflammatory lesions or infarcts. Dictated by: Johnson Brody M.D. on 11/30/2016 at 19:04 Approved by: Johnson Brody M.D. on 11/30/2016 at 19:25
[2016-11-30] MEDS: LUMIGAN 0.01% BOTH_EYES SCH (20:27)
[2016-12-01] VITALS (11 sets, daily range): BP systolic 114–170; BP diastolic 68–91; PULSE 54–120; RESP 18–20; O2SAT 91–95
--- NOTE | 2016-12-01 05:53 | NUR ---
Activity Pt alert and responsive with severe aphagia that frustrates her;however, she is able to answer yes/no at times. Pt is impulsive and the bed alarm is on for safety. RT side numbness continues and the patient attempts to write down thoughts, but unable to securely hold specialized pen. Unable to stick out tongue, but will smile instead. Denies pain and shortness of breath. VSS. Daughter present in room to assist with impulsiveness and care needs. Care ongoing. Addendum: 12/01/16 at 0613 by RODRICK CARDONA RN correction: not aphagia, the pt is APHASIC.
[2016-12-01] MEDS: Albuterol-Ipratropium 3 mL Inhalation Solution NEB PRN (07:55)
[2016-12-01] MEDS ORDERED: MeTOProlol XL 50 mg ER24 Tablet PO SCH ×2 (08:30)
[2016-12-01] MEDS: Salmeterol 50 mcg/Puff 28 Inhalation Diskus INHALATION SCH ×2 (09:46→20:26)
[2016-12-01] MEDS: LUMIGAN 0.01% BOTH_EYES SCH (09:46)
--- NOTE | 2016-12-01 10:19 | NUR ---
NUTRITION FOLLOW-UP: ASSESS: 61 YO female admitted for evaluation of acute onset of aphasia and right sided weakness, representing CVA. New diagnosis of right lung mass as well. ST has advanced diet to dysphagia mechanical w/NT liquids. She has been tolerating this well at 50-75% of meals. She continues to have expressive aphasia. PMHx: COPD, HTN, dyslipidemia, A-fib. DIET: Dysphagia mechanical. PO 50-75% LABS: Glu 121, Alb 4.3 MEDICATIONS: Reviewed. GI symptoms / stool: 0 BM Skin Integrity: No issues reported. ANTHROPOMETRICS: Current Wt: 82.9kg BMI: 28.6 kg/m2, admit wt 87.3kg, IBW: 61.4 kg ESTIMATED NEEDS: Calories: 2075-2485kcal/day (22-25kcal/kg) Protein: 85-100g protein (1.0-1.2g / kg BW) NUTRITION DIAGNOSIS: 1) Chewing / swallowing difficulties related to CVA, as evidenced by inability to advance diet beyond NPO status---IMPROVING INTERVENTION: 1) Continue diet per ST. PO is adequate at this time MONITOR/EVALUATE: ST, diet advance / tolerance, PO intake, labs, wt, GI/nutrition status. Follow up per moderate nutrition risk guidelines.
--- NOTE | 2016-12-01 13:27 | NUR ---
Social Work Note: Continued Discharge Planning Data& Assessment: SW spoke with Alexandra from [facility] who explained they are able to accept pt and the [facility] insurance authorization process has been started. SW to continue to follow and await notification of approval or denial for inpt rehab stay. Pt notified. SW to continue to follow. Plan: Anticipated discharge to [facility] pending insurance authorization. SW to continue to follow and await notification of approval or denial for inpt rehab stay. DORIS Guadarrama
--- NOTE | 2016-12-01 14:26 | PCM.PNMED ---
Subjective Date of Service Dec 01, 2016 Subjective Ongoing dense expressive aphasia. ROS and subjective not obtainable. Exam Vital Signs Vital Sign - Last Date Time Temp Pulse Resp B/P Pulse Ox O2 Delivery O2 Flow Rate FiO2 12/01/16 14:19 120 12/01/16 12:08 36.9 18 159/86 94 Room Air 11/30/16 08:11 2.00 Intake and Output 11/30/16 11/30/16 12/01/16 Cumulative From/Thru 14:59 22:59 06:59 11/28/16 08:02 - 12/01/16 06:57 Intake Total 814 ml 4408 ml Output Total 650 ml 2000 ml 4625 ml Balance 164 ml -2000 ml -217 ml Intake Oral 460 ml 620 ml IV Total 354 ml 3788 ml Output Urine Total 650 ml 2000 ml 4625 ml # Voids 4 # Bowel Movements 0 0 Exam Alert, calm. No distress. Anicteric sclera Lungs with normal effort and rate. Pulses regular Abdomen non distended. No edema Normal joints Normal gait and extremity strength. Expressive aphasia. Moves arms well, normal gait. IVs and Medications Medications Reviewed: Medications were reviewed in detail Lab and Diagnostics Result Diagram: 11/29/16 0450 11/29/16 0450 X-Rays, CTs and MRIs CTA head neck IMPRESSION: 1. No acute intracranial abnormalities. 2. No hemodynamically significant lesions of the central intracranial vasculature. 3. 45-50% bilateral eccentric luminal stenosis of the proximal internal carotid arteries. 4. 2.8 cm irregular lateral right upper lobe nodule, suspicious for bronchogenic carcinoma. Additional 8 mm indeterminate medial right upper lobe nodule is also present. MRI 11/28/16 IMPRESSION: 1. Acute to early subacute cortical infarct involving the left temporal lobe within the middle cranial fossa. No definite evidence of hemorrhagic conversion. 2. Suggestion of a small thrombosed vessel extending to this region, likely corresponding to an M2/M3 branch of the left middle cerebral artery. Findings discussed with Dr. Harden on 11/28/16 at 4 PM. Dictated by: Saad Reese M.D. on 11/28/2016 at 16:06 Approved by: Saad Reese M.D. on 11/28/2016 at 16:06 ADDENDUM: There is a small 4 mm aneurysm in the proximal M2 segment of the left middle cerebral artery. Findings discussed with Dr. Harden on 11/28/16 at 5:30 PM. Dictated by: Saad Reese M.D. on 11/28/2016 at 17:34 Approved by: Saad Reese M.D. on 11/28/2016 at 17:34 12-lead ECG NSR rate of 72 on admission Assessment & Plan 61 yo F with history of COPD, hypertension, hyperlipidemia, tobacco dependence, and recently diagnosed paroxysmal A. fib who presented to the ED by EMS for evaluation of acute onset of aphasia and right sided weakness. # Acute left MCA embolic CVA, present on admission. Expressive aphasia. Patient presented with symptoms of right-sided weakness, aphasia, dysarthria, and right facial droop likely represents a fairly large CVA Initial NIHSS 12,tpa not given due to unknown last known well and patient on Pradaxa There was no acute bleeding demonstrated on initial CTA and CT of brain and neck , but due to severity of presenting symptoms, we will monitor closely for hemorrhagic transformation. Aspirin when necessary administered, will continue with daily aspirin, rectal ASA for now will consider NGT for po medication if fails swallow eval by therapist We will allow for permissive hypertension for 24 hours. Labetalol 10 mg IV when necessary for hypertension greater than 220/110 Close neuro monitoring MR stroke protocol as above with acute stroke, complete echocardiogram ordered Speech therapy to perform swallow evaluation IV NS 100mls/hr while NPO PT/OT evaluation and recommendation Ativan 1 mg prn anxiety Continue current meds (ASA and atorv), she will need coumadin in 2 weeks. Recent ECHO with bubble was negative. Start lisinopril at 10 mg daily. #Right lung mass, POA,NEW DIAGNOSIS Spiculated right upper lobe lesion likely representing a malignant mass. We will need further workup and imaging in due time patient had contrast CT 11/28, consider doing dedicated CT abd /pelvis/ chest with contrast on Wednesday.also consider consulting oncology and IR for biopsy CT Chest and abdomen a little more suggestive of possible lung CA. Discussed delayed work up after rehab for this. Probable biopsy, oncology referral outpt. #Paroxysmal atrial fibrillation with RVR , POA patient NPO and went to RVR We will monitor on telemetry We will need to discuss other anticoagulation options if patient is not compliant on her Pradaxa due to copay [place] neurology recommend restarting anticoagulation after 10 days of stroke # left middle cerebral artery aneurysm -neurology recommends outpatient neurosurgical evaluation -can as well be the source of clot which caused CVA given same distribution Consider coumadin in 10 days-2 weeks, ASA until then. # subclinical hypothyroidism -TSH 7.8,FT4 1.11 -may need to repeat TFT in few weeks # chronic COPD, POA Currently stable without exacerbation We will continue patient's home inhalers after medication reconciliation We will add on DuoNeb Q6h Patient saturations have been fairly normal on room air #Essential hypertension, POA Hold hypertensive medication for 24 hours, start lisinopril today at 10 mg. Uptitrate as needed. #Hyperlipidemia, POA We will continue with atorvastatin 40 mg at bedtime Lipid panel in a.m. #Tobacco dependence, POA Encourage tobacco cessation Nicotine patch PRN Tylenol prn fever/pain Zofran prn nausea Bowel Regimen prn constipation CODE STATUS: Full resuscitation updated daughter at bed side Admission status: Patient is admitted under inpatient status with expected length of stay greater than 2 nights due to patient's medical complexity and risk of adverse events Dsicharge planning: Rehab verses SNF. Preauth pending. Trying for inpatient rehab in [place]. maybe Wednesday. VTE Prophylaxis: Sub-Q Enoxaparin VTE Mechanical Devices: Anti-Embolic stockings Resuscitation Status: CPR: Attempt Resuscitation Time spent 35 min Donnell Vo MD Dec 01, 2016 14:26
[2016-12-01] MEDS ORDERED: MeTOProlol XL 50 mg ER24 Tablet PO ONE (17:45)
[2016-12-01] MEDS ORDERED: MeTOProlol 1 mg/mL 5 mL Inj IVPUSH ONE (17:45)
--- NOTE | 2016-12-01 19:22 | NUR ---
Neuro/Activity/Afib RVR Patient aphasic, able to answer yes/no questions, denies pain, nausea or sob. Patient amb indep in room with family observation, steady gait. Amb in [place] with sba, mesha well. Patient tele SB 50-60's this a.m. and converted back to A fib RVR 110-150's at approx 1415. Patient given Labetolol per MD orders without effect. Dr Vo notified and Metoprolol IV and po given, tele remains A fib 110-140's. Patient encouraged to rest and only up to bathroom. Family at bedside to assist with ADL's. Will cont poc.
[2016-12-02] VITALS (7 sets, daily range): BP systolic 101–155; BP diastolic 65–91; PULSE 58–116; RESP 16–20; O2SAT 93–98
[2016-12-02] MEDS: Albuterol-Ipratropium 3 mL Inhalation Solution NEB PRN (03:11)
--- NOTE | 2016-12-02 05:08 | NUR ---
Activity/cough Pt ambulates in room I with SBA for safety due to impulsiveness. Pt continues with Aphasia and was able to stick out her tongue when she looked into the computer screen, which is an improvement from yesterday. Denies chest pain, shortness of breath and general discomfort. Pt noted with increased coughing (swallows phlegm) during the night and received a prn neb tx-helpful. care ongoing.
[2016-12-02] MEDS ORDERED: MeTOProlol XL 50 mg ER24 Tablet PO SCH (08:30)
[2016-12-02] MEDS: Salmeterol 50 mcg/Puff 28 Inhalation Diskus INHALATION SCH (09:13)
[2016-12-02] MEDS: LUMIGAN 0.01% BOTH_EYES SCH (09:15)
[2016-12-02] MEDS ORDERED: ATOR40TA69 PO (11:25)
[2016-12-02] MEDS ORDERED: ASPI81TA3 PO (11:25)
[2016-12-02] MEDS ORDERED: LISI-610 PO (11:25)
--- NOTE | 2016-12-02 11:43 | PCM.DIMED ---
Discharge Instructions Date of Service Dec 02, 2016 Dates of Hospitalization Nov 28, 2016 at 11:28 Discharge Diagnosis Discharge Diagnosis CVA new lung mass P-Afib Diet Other (soft dysphagia diet, general ) Activity Limited until seen by PCP Patient Instructions Follow-up plan She will need outpatient follow up after rehab with neurosurgery for brain aneurism as well as oncology for work up of RUL lung mass Sampson Boykin DO Dec 02, 2016 11:27
--- NOTE | 2016-12-02 12:49 | PCM.DC.MED ---
Discharge Summary Date of Service Dec 02, 2016 Dates of Hospitalization Date of Hospital Admission Nov 28, 2016 at 11:28 Date of Discharge: Dec 02, 2016 Providers: Admitting Physician: Bassam Harden MD Primary Care Physician: Nathaniel Longo MD Attending Physician: Bassam Harden MD Diagnosis at Time of Discharge Diagnosis at Time of Discharge CVA new lung mass P-Afib Procedures XRay, CTs & MRIs CTA head neck IMPRESSION: 1. No acute intracranial abnormalities. 2. No hemodynamically significant lesions of the central intracranial vasculature. 3. 45-50% bilateral eccentric luminal stenosis of the proximal internal carotid arteries. 4. 2.8 cm irregular lateral right upper lobe nodule, suspicious for bronchogenic carcinoma. Additional 8 mm indeterminate medial right upper lobe nodule is also present. MRI 11/28/16 IMPRESSION: 1. Acute to early subacute cortical infarct involving the left temporal lobe within the middle cranial fossa. No definite evidence of hemorrhagic conversion. 2. Suggestion of a small thrombosed vessel extending to this region, likely corresponding to an M2/M3 branch of the left middle cerebral artery. Findings discussed with Dr. Harden on 11/28/16 at 4 PM. Dictated by: Saad Reese M.D. on 11/28/2016 at 16:06 Approved by: Saad Reese M.D. on 11/28/2016 at 16:06 ADDENDUM: There is a small 4 mm aneurysm in the proximal M2 segment of the left middle cerebral artery. Findings discussed with Dr. Harden on 11/28/16 at 5:30 PM. Dictated by: Saad Reese M.D. on 11/28/2016 at 17:34 Approved by: Saad Reese M.D. 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 fib who presented to the ED by EMS for evaluation of aphasia and right sided weakness. Her last known normal was 2100 yesterday per family. Patient woke up this morning and was unable to speak. When EMS was called, they noted that she was able to follow commands, and had a right-sided facial droop, but had severe expressive aphasia and was only able to answer questions by nodding her head. Of note, patient was recently diagnosed with atrial fibrillation, and is currently on Pradaxa, but may not be taking it consistently per daughter. In the ED her and NIHSS score was noted to be 12. TPA was not administered due to patient being on Pradaxa and uncertain timeframe. Her vital signs were stable with blood pressures in the 160 systolic and O2 saturation of 98% on room air. Her CBC and CMP were unremarkable. She was administered aspirin [place] due to her severe dysarthria and risk of aspiration. She had a CTA of brain and neck revealed no acute intracranial abnormalities, but there was incidental findings of 2.8 cm irregular right upper lobe nodule along with an 8 mm indeterminate medial right upper lobe nodule, both concerning for bronchogenic carcinoma. These results were relayed to the patient and her family. During this examination, patient continued to be severely dysarthric and aphasic , with noticeable right facial droop, and right-sided weakness. She denied any pain, and daughter did not report any recent illnesses or surgical procedures. Hospital Course 61 yo F with history of COPD, hypertension, hyperlipidemia, tobacco dependence, and recently diagnosed paroxysmal A. fib who presented to the ED by EMS for evaluation of acute onset of aphasia and right sided weakness. Workup revealed right upper lobe lung mass suspicious for metastatic disease. Also middle left cerebral artery aneurysm, suggest outpatient neurosurgical and operations support specialist evaluation. Patient improved throughout her hospital stay. Physical therapy recommended aggressive inpatient rehabilitation. Patient was discharged to [facility] in stable condition for continuing inpatient rehabilitation. She will be followed medically at that facility. Recommend restarting anticoagulation on the 11 of this month. Delineated problem list as below. # Acute left MCA embolic CVA, present on admission. Expressive aphasia. Patient presented with symptoms of right-sided weakness, aphasia, dysarthria, and right facial droop likely represents a fairly large CVA Initial NIHSS 12,tpa not given due to unknown last known well and patient on Pradaxa There was no acute bleeding demonstrated on initial CTA and CT of brain and neck , but due to severity of presenting symptoms, we will monitor closely for hemorrhagic transformation. Aspirin when necessary administered, will continue with daily aspirin, rectal ASA for now will consider NGT for po medication if fails swallow eval by therapist We will allow for permissive hypertension for 24 hours. Labetalol 10 mg IV when necessary for hypertension greater than 220/110 Close neuro monitoring MR stroke protocol as above with acute stroke, complete echocardiogram ordered Speech therapy to perform swallow evaluation IV NS 100mls/hr while NPO PT/OT evaluation and recommendation Ativan 1 mg prn anxiety Continue current meds (ASA and atorv), she will need coumadin in 2 weeks. Recent ECHO with bubble was negative. Start lisinopril at 10 mg daily. #Right lung mass, POA,NEW DIAGNOSIS Spiculated right upper lobe lesion likely representing a malignant mass. We will need further workup and imaging in due time patient had contrast CT 11/28, consider doing dedicated CT abd /pelvis/ chest with contrast on Wednesday.also consider consulting oncology and IR for biopsy CT Chest and abdomen a little more suggestive of possible lung CA. Discussed delayed work up after rehab for this. Probable biopsy, oncology referral outpt. #Paroxysmal atrial fibrillation with RVR , POA patient NPO and went to RVR We will monitor on telemetry We will need to discuss other anticoagulation options if patient is not compliant on her Pradaxa due to copay [facility] neurology recommend restarting anticoagulation after 10 days of stroke # left middle cerebral artery aneurysm -neurology recommends outpatient neurosurgical evaluation -can as well be the source of clot which caused CVA given same distribution Consider Coumadin in 10 days-2 weeks, ASA until then. # subclinical hypothyroidism -TSH 7.8,FT4 1.11 -may need to repeat TFT in few weeks # chronic COPD, POA Currently stable without exacerbation We will continue patient's home inhalers after medication reconciliation We will add on DuoNeb Q6h Patient saturations have been fairly normal on room air #Essential hypertension, POA Hold hypertensive medication for 24 hours, start lisinopril today at 10 mg. Uptitrate as needed. #Hyperlipidemia, POA We will continue with atorvastatin 40 mg at bedtime Lipid panel in a.m. #Tobacco dependence, POA Encourage tobacco cessation Nicotine patch PRN Tylenol prn fever/pain Zofran prn nausea Bowel Regimen prn constipation CODE STATUS: Full resuscitation updated daughter at bed side Exam Vital Signs (Last) Date Time Temp Pulse Resp B/P Pulse Ox O2 Delivery O2 Flow Rate FiO2 12/02/16 10:20 76 12/02/16 08:42 36.8 20 132/87 98 Room Air 11/30/16 08:11 2.00 Test 4/1/17 08:15 11/29/16 04:50 Prothrombin Time 10.0sec (8.1-12.5) Prothromb Time International Ratio 0.94ratio Activated Partial Thromboplast Time 24.3sec (22.8-33.0) Hemoglobin A1c 6.0% (4.8-5.6) Total Bilirubin 0.3mg/dL (0.0-1.2) Aspartate Amino Transf (AST/SGOT) 33U/L (0-50) Alanine Aminotransferase (ALT/SGPT) 26U/L (0-32) Alkaline Phosphatase 105U/L (25-165) Troponin T 0.010ug/L (0.0-0.011) Total Protein 7.5g/dL (6.4-8.4) Albumin 4.3g/dL (3.4-5.0) White Blood Count 10.1th/mm3 (3.8-10.1) Red Blood Count 5.12mil/mm3 (3.90-5.20) Hemoglobin 15.8g/dL (12.0-15.6) Hematocrit 47.7% (35.0-46.0) Mean Corpuscular Volume 93.2fL (81-100) Mean Corpuscular Hemoglobin 30.9pg (27.0-35.0) Mean Corpuscular Hemoglobin Concent 33.1% (32.0-37.0) Red Cell Distribution Width 13.3% (12.3-15.4) Platelet Count 258bil/L (150-400) Neutrophils (%) (Auto) 70.2% (40-74) Lymphocytes (%) (Auto) 19.0% (14-46) Monocytes (%) (Auto) 9.1% (4-12) Eosinophils (%) (Auto) 1.0% (0-5) Basophils (%) (Auto) 0.4% (0-3) Sodium Level 139mEq/L (134-144) Potassium Level 4.3mEq/L (3.5-5.2) Chloride Level 99mEq/L (97-108) Carbon Dioxide Level 23mmol/L (18-29) Blood Urea Nitrogen 9mg/dL (8-27) Creatinine 0.59mg/dL (0.57-1.00) Estimat Glomerular Filtration Rate 149mL/min (>59) Glucose Level 121mg/dL (60-99) Calcium Level 9.5mg/dL (8.5-10.1) Triglycerides Level 182mg/dL (0-149) Cholesterol Level 231mg/dL (100-199) LDL Cholesterol, Calculated 142.600mg/dL (0-99) VLDL Cholesterol 36.400mg/dL HDL Cholesterol 52mg/dL (>39) Cholesterol/HDL Ratio 4.44 (0.0-4.4) Thyroid Stimulating Hormone (TSH) 7.890uIU/mL (0.450-4.500) Free Thyroxine 1.11ng/dL (0.82-1.77) Discharge Medications Discharge Medications Aspirin Chew (Aspirin Chew) 81 Mg Chew 81 MG PO DAILY Prescribed by: BOB BOYKIN DO Atorvastatin Calcium (Atorvastatin Calcium) 40 Mg Tablet 40 MG PO HS Prescribed by: BOB BOYKIN DO Bimatoprost (Lumigan) 45 Drop/2.5 Ml Ophsoln 2 DROP BOTH_EYES BID (Reported) Diltiazem ER (Dilt XR) 180 Mg Cap.er.deg 180 MG PO BID (Reported) Fluoxetine (Fluoxetine) 10 Mg Capsule 10 MG PO BID (Reported) Lisinopril (Zestril) 10 Mg Tablet 10 MG PO DAILY Prescribed by: BOB BOYKIN DO Metoprolol Succinate ER (Metoprolol Succinate ER) 100 Mg Tab.er.24h 100 MG PO DAILY (Reported) Salmeterol Xinafoate (Serevent Diskus) 50 Mcg/Puff Inhaler 1 PUFF IH BID ( Reported) Miscellaneous Medications Albuterol Sulfate (Proair Respiclick) 90 Mcg Aer.pow.ba 90 MCG IH (Reported) Followup Plan Follow-up plan She will need outpatient follow up after rehab with neurosurgery for brain aneurism as well as oncology for work up of RUL lung mass Discharge Diet: Other (soft dysphagia diet, general ) Discharge Activity: Limited until seen by PCP Time spent 45 min Bob Boykin DO Dec 02, 2016 12:30
--- NOTE | 2016-12-02 12:58 | NUR ---
Social Work Note: Discharge Data& Assessment: EMR reviewed. Per pt is medically ready to discharge to [facility] today via POV. Per Alexandra from [facility], they have received insurance authorization. Pt requires ST, OT and PT post stroke. Per pt is medically improved and ready to begin her inpt rehab stay. Pt family transporting privately. Pt and pt family deny any other needs. Appropriate documents faxed to [facility]. All updated and agreeable to plan. No other discharge needs identified. Plan: Per pt is medically ready to discharge to [facility] today via POV. Pt and pt family deny any other needs. All updated and agreeable to plan. No other discharge needs identified. DORIS Guadarrama
--- NOTE | 2016-12-02 13:18 | NUR ---
Discharge note Patient cont to have expressive aphasia, able to answer yes/no questions. 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 Patient oob amb indep in room, steady gait. Family at bedside assisting with ADL's. Patient denies pain, nausea or sob. Taking diet well. VSS, tele A flutter 110-140's this a.m. and converted to SR 60's this afternoon. IV SL and tele removed intact. Patient given discharge packet and amb to car with all belongings and discharged with family. Report called to [facility].
[2016-12-25] MEDS ORDERED: DABI150C PO (13:03)
[2016-12-25] MEDS ORDERED: FLUO20TA28 PO (13:03)
[2017-02-04] MEDS ORDERED: LOVENOX BRIDGING (15:25)
[2017-02-09] MEDS ORDERED: ACET-171 PO (09:52)
[2017-02-09] MEDS ORDERED: PROC-4 PO (09:52)
[2017-02-09] MEDS ORDERED: LORA0.5T PO (13:40)
== END 2016-12-02 14:00 | DRG 65 ==
LOC: SED 08:00 → EDUNIT# 08:00 → EDBD 08:00 → MPC 11:28 → PCC 11-29 09:08
PROVIDERS: ADMIT Internal Medicine; ATTEND Internal Medicine
DX: I63.412 Cerebral infarction due to embolism of left middle cerebral artery (principal); G81.91 Hemiplegia, unspecified affecting right dominant side; R47.01 Aphasia; R29.712 NIHSS score 12; I48.0 Paroxysmal atrial fibrillation; J44.9 Chronic obstructive pulmonary disease, unspecified; I10 Essential (primary) hypertension; R29.810 Facial weakness; F17.210 Nicotine dependence, cigarettes, uncomplicated; R91.8 Other nonspecific abnormal finding of lung field; E78.5 Hyperlipidemia, unspecified; E02 Subclinical iodine-deficiency hypothyroidism

== ENCOUNTER 2017-02-08 12:28 | Day surgery (SDC) | payer OTHER ==
[~2017-02-08] VITALS: Ht 170.2 cm; Wt 81.0 kg
[~2017-02-08 12:28] MED LIST: ALBU90AE IH; BIMA2.5D5 BOTH_EYES; CeFAZolin Inj 2 GM in IV Premix 1 EACH IV ONE; DABI150C PO; FLUO20TA28 PO; LOVENOX BRIDGING; Lactated Ringer's 1,000 ML IV ONE; METO-274 PO; SALM50DI IH
[2017-02-08] MEDS ORDERED: Propofol 10,000 mCg/mL 20 mL Inj ONE (12:29)
[2017-02-08] MEDS ORDERED: fentaNYL-PF 50 mCg/mL 2 mL Inj ONE (12:29)
[2017-02-08 13:41] LABS: BASOPHILS % (AUTO) 0.4 % (0-3); EOSINOPHILS % (AUTO) 4.4 % (0-5); MONOCYTES % (AUTO) 8.3 % (4-12); Mean Corpuscular Hemoglobin 29.3 pg (27.0-35.0); Mean Corpuscular Volume 88.9 fL (81-100); NEUTROPHILS % (AUTO) 55.9 % (40-74); Platelet Count 284 bil/L (150-400)
[2017-02-08 13:42] VITALS: BP 147/70; PULSE 45; RESP 16; O2SAT 99
--- NOTE | 2017-02-08 13:56 | PCM.HPANE ---
Patient Data Date of Service: Feb 08, 2017 Surgeon Admitting Provider: Attending Provider:Yordy Olivier MD Primary Care Physician:Nathaniel Longo MD Other Provider:Kyle Diaz Anesthesia Reason for Visit Lung Cancer Ht/WT & BMI Height (Feet): 5 Height (Inches): 7.00 Weight (Kilograms): 81.000 Body Mass Index 28.00 Allergies Coded Allergies: atorvastatin (Verified Allergy, Severe, hives, 02/04/17) lisinopril (Verified Allergy, Severe, hives,cough, 02/04/17) dorzolamide (Verified Adverse Reaction, Severe, inflammation of the eyes, 02/04/17) fenofibrate (Verified Adverse Reaction, Severe, abd pain, 02/04/17) latanoprost (Verified Adverse Reaction, Severe, inflammation of the eyes, 02/04/17) simvastatin (Verified Adverse Reaction, Severe, abd pain, 02/04/17) timolol (Verified Adverse Reaction, Severe, inflammation, 02/04/17) Uncoded Allergies: bee stings (Allergy, Unknown, unknown, 02/04/17) Past Anesthesia History Anesthesia History: Denies:: Anesthesia Reactions, Malignant Hyperthermia Diabetes History Hx Diabetes?: No Current Bedside Blood Glucose: 87 MRSA MRSA: No Medications Blood Thinner: Lovenox, Pradaxa Home Meds Incl Beta Abdi: Yes Date Beta Abdi Taken: Feb 08, 2017 Time Beta Abdi Taken: 0745 Reported Medications [Lovenox Bridging] No Conflict Check 02/04/17 Dabigatran Etexilate Mesylate (Pradaxa)150 Mg [id number] Mg PO BID 12/25/16 Fluoxetine 20 Mg [id number] Mg PO DAILY Ref 0 12/25/16 Salmeterol Xinafoate (Serevent Diskus)50 Mcg/Puff Inhaler1 Puff IH BID PRN For Shortness of Breath 11/28/16 Albuterol Sulfate (Proair Respiclick)90 Mcg Aer.pow.ba90 Mcg IH prn 11/28/16 Bimatoprost (Lumigan)45 Drop/2.5 Ml Ophsoln2 Drop BOTH_EYES BID #1 BOTTLE 11/28/16 Metoprolol Succinate ER 100 Mg Tab.er.51d670 Mg PO DAILY Ref 0 11/28/16 History History of ENT Problems?: Yes HEENT History: Positive for:: Glaucoma Denies:: Cataracts Dysphagia Sinus Problem Denture Type: None Teeth Condition: Within Normal Limits Hx of Heart Problems?: Yes Cardiovascular History: Positive for:: Atrial Fibrillation (HX PAF) Heart Murmur (GR III/ GENEVA) Hypertension (HYPERLIPIDEMIA) Irregular Heartbeat (SUDDEN ONSET PAF-NON COMPLIANT W/ ANTICOAGULATION=CVA 2016) Valvular Heart Disease Denies:: Cardiac Surgery Chest Pain Congestive Heart Failure Edema Pacemaker Rheumatic Fever Thrombophlebitis Hx of Respiratory Problem?: Yes Respiratory History: Positive for:: COPD Dyspnea (SOARES S/P LUNG BX,LT SUPRACALV. NODE BX=CA) Emphysema (LUNG CA/IV ACCESS=CURRENT PROBLEM) Use of Inhalers / NEBS Denies:: Asthma Chest Surgery (PNEUMO FOLLOWING LUNG BX CXR 12/2016-PNEUMO RESOLVED) Pneumonia Tuberculosis Use of C-PAP Machine Hx Neurologic Problems?: Yes Neurological History: Positive for:: CVA (CVa 11/28/16 APHASIA & RT MILIND- PARESIS IMPROVING) Denies:: Alzheimer's Disease Dementia Dizziness Headaches Seizures Hx of GI Problems?: Yes Other GI Pertinent History: S/P APPY Hx of Problems?: No Genitourinary History: Denies:: HX of Hemodialysis Kidney Stones Urinary Tract Infection Female Hx: Denies:: Currently (S/P C/S,BTL,UTERINE ABLATION) Endometriosis Pelvic Inflammatory Problems with Breasts? Skin History: Denies:: History Skin Disorders? Pressure Ulcers Hx Musculoskeletal Problems?: Yes Musculoskeletal History: Positive for:: Musculoskeletal Trauma (S/P RT ACL RPR ,ORIF LT CLAVICLE) Denies:: Back Injury Joint Replacement Hx of Psycho/Social Problems?: Yes Psycho Social History: Positive for:: Hx Depression Denies:: Anxiety Bipolar Disorder Suicide Attempt Hx Surgeries?: Yes (LUNG BX,LT SUPRACLAV NODE BX,C/S,BTL,ABLATION,RT ACL,SPINE SURG,BUNIONECTOM) Hx Any Other Health Problems?: Yes Other History: Positive for:: Cancer (LUNG CA) Hospitalization (CVA) Denies:: Endocrine Disease Thyroid Disease History Blood Transfusions: Denies:: Blood Transfusions Hx Diabetes: NoBedside Blood Glucose: 87 Hx Alcohol Use: No (HX 4 BEERS/DAY RECENTLY QUIT)Hx Substance Use: No Smoking Status: Heavy Tobacco Smoker Have You Smoked inLast 12 mo: Yes (QUIT VERY RECENTLY)Approx How Many Cigarettes/day: 1/2-1 PPD X 50YRS Stop/Bang S-Snoring: Do You Snore Loudly: No T-Tired: feel tired, fatigued: No O-Obsered: Observed not breath: No P-Blood Pressure: treated: Yes B- Body Mass Index > 35 kg/m2: No A- Age over 50: Yes N- Neck Large Circumference: No G- Gender Male: No CRYSTAL Total Score: 2 Risk Assessment Category Category 1A: Patient has history of documented sleep apnea, and HAS NOT received any narcotic, sedative or anesthesia administration during this stay. Category 1B: Patient has history of documented sleep apnea, and HAS received any narcotic , sedative or anesthesia administration during this stay Category 2: Patient has SUSPECTED Obstructive Sleep Apnea, and HAS received any narcotic , sedative or anesthesia administration during this stay. Category 3: Patient has SUSPECTED Obstructive Sleep Apnea and HAS NOT received narcotic, sedative or anesthesia administration during this stay. Category 4: Outpatient in Procedural Areas with known sleep apnea or who screen positive for High Risk via the STOP/BANG questionnaire. Exam Exam Vital Signs Vital Signs Date Time Temp Pulse Resp B/P Pulse Ox O2 Delivery O2 Flow Rate FiO2 02/08/17 13:42 36.5 45 16 147/70 99 Room Air General Appearance: Alert, Oriented X3, Cooperative HEENT/AIRWAY: MP 2 Lungs: Clear to Auscultation, Clear to Percussion Heart: Exam Unremarkable, Regular Rate/Rhythm, Murmur (2/6 GENEVA RUSB) Meds/Labs/Diagnostics Admission Meds Current Medications Lactated Ringer's (Lr) 1,000 ml @ 120 mls/hr Q8H20M ONCE IV Last administered on 02/08/17t 13:42; Start 02/08/17 at 05:00; Stop 02/08/17 at 13:19; Status DC Bedside Blood Glucose: 87 Labs Test 02/08/17 13:34 White Blood Count 7.4th/mm3 (3.8-10.1) Red Blood Count 4.95mil/mm3 (3.90-5.20) Hemoglobin 14.5g/dL (12.0-15.6) Hematocrit 44.0% (35.0-46.0) Mean Corpuscular Volume 88.9fL (81-100) Mean Corpuscular Hemoglobin 29.3pg (27.0-35.0) Mean Corpuscular Hemoglobin Concent 33.0% (32.0-37.0) Red Cell Distribution Width 13.1% (12.3-15.4) Platelet Count 284bil/L (150-400) Neutrophils (%) (Auto) 55.9% (40-74) Lymphocytes (%) (Auto) 30.9% (14-46) Monocytes (%) (Auto) 8.3% (4-12) Eosinophils (%) (Auto) 4.4% (0-5) Basophils (%) (Auto) 0.4% (0-3) Plan Impression Patient chart reviewed, patient interviewed and anesthestic plan with risks, benefits, and alternatives discussed, and informed consent obtained. ASA Physical Status: ASA2 Mod Systemic Disease Anesthetic Plan: MAC Bene/Risks/Altern/Consents: Yes HP Complete Prior to Induction: Yes Ravi Moses MD Feb 08, 2017 13:56
[2017-02-08 13:57] LABS: INR 0.95 ratio
[2017-02-08] MEDS ORDERED: Lidocaine PF 1% 30 mL Inj INFILTRATE ONE (14:15)
[2017-02-08] MEDS ORDERED: Bupivacaine-MPF 0.25% 30 mL Inj INFILTRATE ONE (14:15)
[2017-02-08] MEDS ORDERED: HepLOK Flush 100 unit/mL 5 mL Inj IVFLUSH ONE (14:16)
[2017-02-08] MEDS ORDERED: Lactated Ringer's 1,000 ML IV SCH (14:38)
[2017-02-08] MEDS ORDERED: Lactated Ringer's 500 ML IV PRN (14:38)
[2017-02-08] MEDS ORDERED: Phenylephrine 10,000 mCg/mL Inj IVPUSH PRN (14:40)
[2017-02-08] MEDS ORDERED: EPHEDrine Sulfate 50 mg/mL Inj IVPUSH PRN (14:40)
[2017-02-08] MEDS ORDERED: Labetalol 5 mg/mL 4 mL Inj IV PRN (14:40)
[2017-02-08] MEDS ORDERED: HYDROmorphone 1 mg/mL Inj IVPUSH PRN (14:40)
[2017-02-08] MEDS ORDERED: fentaNYL-PF 50 mCg/mL 2 mL Inj IVPUSH PRN (14:40)
[2017-02-08] MEDS ORDERED: Ondansetron 2 mg/mL 2 mL Inj IVPUSH PRN (14:40)
[2017-02-08] MEDS ORDERED: Atropine 0.4 mg/mL Inj IVPUSH PRN (14:40)
[2017-02-08] MEDS ORDERED: MetoCLOpramide 5 mg/mL 2 mL Inj IVPUSH PRN (14:40)
[2017-02-08 15:05] VITALS: BP 146/76; PULSE 43; RESP 14; O2SAT 100
--- NOTE | 2017-02-08 15:13 | PCM.ANEP1 ---
Post Anesthesia PACU Phase 1 Assessment Date of Service: Feb 08, 2017 Vital Signs Vital Signs Date Time Temp Pulse Resp B/P Pulse Ox O2 Delivery O2 Flow Rate FiO2 02/08/17 15:05 43 14 146/76 100 Room Air 02/08/17 13:42 36.5 45 16 147/70 99 Room Air Anesthetic Administered: MAC Level of Alertness: Awake, talking ALCANTAR's with Equal Strength: No (baseline R hemiparesis) Pain: No Nausea or Vomiting: No CV Function & Hydration Stable: No Airway Device: Oxygen Delivery: Room Air Lungs: Clear to Auscultation, Clear to Percussion Summary baseline expressive aphasia PACU Phase 2 Assessment Complications: No Patient Instructions Provided: N/A Ravi Moses MD Feb 08, 2017 15:13
[2017-02-08 15:14] VITALS: BP 166/76; PULSE 44; RESP 14; O2SAT 100
--- NOTE | 2017-02-08 15:38 | DRSVH ---
PROCEDURE: X-RAY CHEST ONE VIEW, PORTABLE ([id number]) INDICATIONS: port TECHNIQUE: One view of the chest was acquired. COMPARISON: [facility], , XR CHEST 1VW (PORTABLE), 01/04/2017, 13:38. [facility], [place], PET NECK TO MID THIGH STD, 01/14/2017, 9:21. FINDINGS: Surgical changes and devices: There is a Port-A-Cath on the left with the tip in the area of the SVC. Lungs and pleura: A 3 cm irregular mass is present in the right upper lobe. No pleural effusions or pneumothorax. Mediastinum: Mediastinal contours appear normal. Heart size is normal. Bones and chest wall: No suspicious bony lesions. Overlying soft tissues appear unremarkable. IMPRESSION: Port-A-Cath with tip in the area of the superior vena cava. Dictated by: Yifan Arreola M.D. on 02/08/2017 at 15:35 Approved by: Yifan Arreola M.D. on 02/08/2017 at 15:37
--- NOTE | 2017-02-08 15:55 | DRSVH ---
PROCEDURE: X-RAY SUGICAL FLUORO-VENOUS ACCESS INDICATIONS: LUNG CANCER COMPARISON: [facility], [place], US GUIDED BX LYMPHNDE, 01/20/2017, 11:19. FINDINGS: Left IJ chest port has been placed with tip projected over the lower SVC. IMPRESSION: Placement of left IJ chest port. Dictated by: Kyle LUTHER Interpreted: Marylin Arevalo MD on 02/08/2017 at 15:53 Transcribed by: KERMIT on 02/08/2017 at 15:54 Approved by: Marylin Arevalo M.D. on 02/08/2017 at 15:59
--- NOTE | 2017-02-09 00:33 | OP ---
[address] [address] OPERATIVE REPORT PATIENT: FLAVIO SALAS : 1955 MR#: [id number] ADMIT: 02/08/2017 JOB ID: [id number] DATE OF SURGERY: 02/08/2017 ANESTHESIA: MAC with local. PREOPERATIVE DIAGNOSIS(ES): Lung cancer. POSTOPERATIVE DIAGNOSIS(ES): Lung cancer. OPERATIVE PROCEDURE: Insertion of left internal jugular vein Port-A-Cath using both ultrasound and fluoroscopy with interpretation for guidance. SURGEON: Yordy Olivier MD. RED LEADER: Dr. Woody MS3 COMPLICATIONS: None. ESTIMATED BLOOD LOSS: Less than 5 mL. CONDITION: Satisfactory. SPECIMEN: None. FINDINGS: An attempt was made at left subclavian access. However, the patient has a history of a left clavicle fracture status post open operative repair and due to scar tissue I was unable to even identify the vein. I; therefore, used the ultrasound guidance to place a low-profile port through the left internal jugular. INDICATIONS: The patient is a 61-year-old female recently diagnosed with cancer who is scheduled for chemotherapy in the future. OPERATIVE TECHNIQUE: The patient was taken to the operating room and placed in the supine position. Light sedation was administered, and the neck and chest were prepped and draped in standard surgical fashion. A procedure pause was performed. Preoperative antibiotics were given. Local anesthetic was injected. I attempted to access the left subclavian vein. However, there was a lot of scar tissue and I simply just could not find the vein. Therefore, I accessed the left internal jugular vein under sonographic guidance. A wire was inserted and position confirmed with fluoroscopy. The wire was seen to course through the heart down into the inferior vena cava. I then created a subcutaneous pocket in the left anterior chest. A low-profile Port-A-Cath was secured in place using three 2-0 Prolene sutures. The catheter was then tunneled up to the wire exit point in the neck and inserted into the vein under fluoroscopic visualization using the Seldinger technique. Good final position was confirmed. The port aspirated and flushed nicely. This was locked with heparin. The skin was closed using 3-0 Vicryl deep dermals followed by a running 4-0 Monocryl. Dermabond was applied. The entire procedure was well tolerated without complication.
[2017-02-09] MEDS ORDERED: PROC-4 PO (09:52)
[2017-02-09] MEDS ORDERED: ACET-171 PO (09:52)
[2017-02-09] MEDS ORDERED: LORA0.5T PO (13:40)
== END 2017-02-08 23:59 | disposition home or self-care (01) ==
LOC: SAS 12:28
PROVIDERS: ATTEND General Practice
DX: C34.90 Malignant neoplasm of unspecified part of unspecified bronchus or lung (principal); I10 Essential (primary) hypertension; J44.9 Chronic obstructive pulmonary disease, unspecified; F32.9 Major depressive disorder, single episode, unspecified; I48.0 Paroxysmal atrial fibrillation; G72.89 Other specified myopathies; Z86.73 Personal history of transient ischemic attack (TIA), and cerebral infarction without residual deficits; Z87.891 Personal history of nicotine dependence; Z79.01 Long term (current) use of anticoagulants
CPT/HCPCS: 36415; 36561; 71010; 77001; 80053; 82378; 85025; 85610; C1788; J0690; J1642; J2250; J3010; J7120

== ENCOUNTER 2017-04-22 17:31 | Emergency (ER) | payer OTHER ==
[~2017-04-22] VITALS: Ht 170.2 cm; Wt 72.7 kg
[~2017-04-22 17:31] MED LIST changes: +ACET-171 PO; +BECL8.7A5 INHALATION; -CeFAZolin Inj 2 GM in IV Premix 1 EACH IV ONE; +LORA0.5T PO; -LOVENOX BRIDGING; -Lactated Ringer's 1,000 ML IV ONE; +OXYC5TAB72 PO; +PROC-4 PO
[2017-04-22 17:35] VITALS: BP 131/66; PULSE 68; RESP 16; O2SAT 97
--- NOTE | 2017-04-22 18:06 | ED.REPORT ---
HPI-Fever Date of Service Apr 22, 2017 ED Provider: Smooth Gonzalez MD Pt is a 62 y/o female with a history of lung cancer, CVA, hypertension, hyperlipidemia, and neutropenia who presents to the ED with a 101.5 fever at home that went down to 99 with Tylenol onset today. Pt receives chemotherapy and radiology for lung cancer, and her last treatment was 8 days ago. Oncology wanted her to come to the ED for evaluation. Additional symptoms include fatigue , expressive aphasia that is baseline, and nausea that is baseline s/p chemotherapy. She denies abdominal pain, cough, headache, back pain, or neck pain. Pt's daughter states that pt's labs usually drop in between chemotherapy and radiation treatments, but after she receives treatment, her symptoms improve. Nursing Notes Stated Complaint: FEVER POST CHEMO Chief Complaint: General Complaint Nursing Notes Reviewed: Yes Allergies: Coded Allergies: atorvastatin (Verified Allergy, Severe, hives, 02/04/17) lisinopril (Verified Allergy, Severe, hives,cough, 02/04/17) dorzolamide (Verified Adverse Reaction, Severe, inflammation of the eyes, 02/04/17) fenofibrate (Verified Adverse Reaction, Severe, abd pain, 02/04/17) latanoprost (Verified Adverse Reaction, Severe, inflammation of the eyes, 02/04/17) simvastatin (Verified Adverse Reaction, Severe, abd pain, 02/04/17) timolol (Verified Adverse Reaction, Severe, inflammation, 02/04/17) Uncoded Allergies: bee stings (Allergy, Unknown, unknown, 02/04/17) Scheduled Albuterol Sulfate (Proair Respiclick) 90 Mcg Aer.pow.ba 90 MCG IH prn Bimatoprost (Lumigan) 45 Drop/2.5 Ml Ophsoln 2 DROP BOTH_EYES BID Dabigatran Etexilate Mesylate (Pradaxa) 150 Mg Capsule 150 MG PO BID Fluoxetine (Fluoxetine) 20 Mg Tablet 20 MG PO DAILY Levofloxacin (Levaquin) 750 Mg Tablet 750 MG PO DAILY Metoprolol Succinate ER (Metoprolol Succinate ER) 100 Mg Tab.er.24h 100 MG PO DAILY AFib, medication for heart Prochlorperazine Maleate (Compazine) 10 Mg Tablet 10 MG PO q6hrs prn Scheduled PRN Acetaminophen (Acetaminophen) 500 Mg Tablet 500 MG PO Q6H PRN PRN For Pain Beclomethasone Dipropionate (Qvar) 8.7 Gm Aer.w.adap 1 PUFF INHALATION BID PRN PRN For Shortness of Breath Lorazepam (Lorazepam) 0.5 Mg Tablet 1-2 TABLET PO Q8H PRN PRN For Nausea Salmeterol Xinafoate (Serevent Diskus) 50 Mcg/Puff Inhaler 1 PUFF IH BID PRN PRN For Shortness of Breath oxyCODONE (oxyCODONE) 5 Mg Tablet 5 MG PO Q4H PRN PRN For Pain General Time Seen by MD: 18:03 Chief Complaint Recent fever Hx Obtained From: Patient, Daughter Arrived By: Walk-in Onset Occurred: 9 - 12 hours ago Recent Healthcare: No recent hospitalization, Recent doctor visit Similar Sx Previous: No Past Medical History Past Medical History Lung cancer CVA Neutropenia Reports: COPD, Hyperlipidemia, Hypertension Reports: Atrial fibrillation Past Surgical History Reports: Hysterectomy Reports: Back/neck surgery Smoking History Heavy Tobacco Smoker 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 Musculoskeletal: Denies: Back pain, Neck pain Physical Exam Initial Vital Signs Vital Signs (First) Date Time Temp Pulse Resp B/P Pulse Ox O2 Delivery O2 Flow Rate FiO2 04/22/17 17:35 37.2 68 16 131/66 97 Room Air Initial VS: Reviewed Head / Eyes: Atraumatic, Normocephalic Extremities: Vascular intact, Neuro intact, No swelling, No tenderness Psychiatric: Mood/affect normal, Behavior normal, Normal thought content General/Constitutional: Awake, Alert Neck: Supple, Full range of motion Respiratory / Chest: Breath sounds NL, Breath sounds = bilat, No respiratory distress Port in L chest, no surrounding erythema Cardiovascular: Heart rate NL, Regular rhythm, Heart sounds NL, No murmurs Skin: Warm, Dry Neurologic: Oriented X3, No motor deficits, No sensory deficits Abdomen: Soft, Non-tender Interpretation & Diagnostics Lab Results Interpretation Result Diagram: 04/22/17184204/22/17 1843 Test 04/22/17 18:43 04/22/17 20:36 White Blood Count 4.6th/mm3 (3.8-10.1) Red Blood Count 2.30mil/mm3 (3.90-5.20) Hemoglobin 7.1g/dL (12.0-15.6) Hematocrit 21.7% (35.0-46.0) Mean Corpuscular Volume 94.3fL (81-100) Mean Corpuscular Hemoglobin 30.9pg (27.0-35.0) Mean Corpuscular Hemoglobin Concent 32.7% (32.0-37.0) Red Cell Distribution Width 19.3% (12.3-15.4) Platelet Count 92bil/L (150-400) Neutrophils (%) (Auto) 65.8% (40-74) Lymphocytes (%) (Auto) 14.1% (14-46) Monocytes (%) (Auto) 12.0% (4-12) Eosinophils (%) (Auto) 0.7% (0-5) Basophils (%) (Auto) 0.2% (0-3) Sodium Level 140mEq/L (134-144) Potassium Level 3.9mEq/L (3.5-5.2) Chloride Level 103mEq/L (97-108) Carbon Dioxide Level 22mmol/L (18-29) Blood Urea Nitrogen 23mg/dL (8-27) Creatinine 0.60mg/dL (0.57-1.00) Estimat Glomerular Filtration Rate 146mL/min (>59) Glucose Level 84mg/dL (60-99) Lactic Acid Level 0.9mmol/L (0.4-2.0) Calcium Level 9.0mg/dL (8.5-10.1) Total Bilirubin 0.3mg/dL (0.0-1.2) Aspartate Amino Transf (AST/SGOT) 12U/L (0-50) Alanine Aminotransferase (ALT/SGPT) 9U/L (0-32) Alkaline Phosphatase 87U/L (25-165) Total Protein 6.2g/dL (6.4-8.4) Albumin 3.8g/dL (3.4-5.0) Urine Color Yellow (YELLOW) Urine Appearance Clear (CLEAR,HAZY) Urine pH 6.5 (5.0-8.0) Urine Specific [place] 1.015 (1.003-1.035) Urine Protein Negativemg/dL (NEG,TRACE) Urine Glucose (UA) Negativemg/dL (NEGATIVE) Urine Ketones Tracemg/dL (NEGATIVE) Urine Occult Blood Negative (NEGATIVE) Urine Nitrite Negative (NEGATIVE) Urine Bilirubin Negative (NEGATIVE) Urine Urobilinogen Normalmg/dL (NORMAL) Urine Leukocyte Esterase Negative (NEGATIVE) Urine RBC 0-2/hpf (0-2) Urine WBC 0-5/hpf (0-5) Urine Epithelial Cells Moderate/hpf (NONE-MOD) Urine Crystals None seen (NONE SEEN) Urine Bacteria Few/hpf (NONE-FEW) Urine Hyaline Casts None/lpf (NONE) Urine Granular Casts None seen (NONE SEEN) Urine Waxy Casts None seen (NONE SEEN) Urine Red Blood Cell Casts None seen (NONE SEEN) Urine White Blood Cell Casts None seen (NONE SEEN) Urine Mucus Present (None Seen) Urine Trichomonas None seen (NONE SEEN) Urine Yeast None (NONE SEEN) Urinalysis Comment None Urine Culture Reflexed Not indicated X-Ray Chest Interpretation Chest Xray Interpretation: IMPRESSION: No pneumonia found. Mass lesion right upper lobe has diminished in size and is indistinctly marginated. Port-A-Cath from left approach appears normal. Dictated by: Ravi Strauss M.D. on 04/22/2017 at 19:33 Approved by: Ravi Strauss M.D. on 04/22/2017 at 19:34 View: Portable, 1 view Interpretation / Wet Read by: Interpret - Radiologist Re-Eval/Medical Decision Med Decision/Clinical Course 62-year-old female history of lung cancer presenting with fever at home today 101.5. She took Tylenol prior to arrival. She is afebrile here. Her vital signs are stable. Her white blood cell count is 4.6 with no left shift. She is not neutropenic. She is severely anemic though this is chronic. Urine is negative for infection. Chest x-ray is clear. There is no clear evidence of infection. I discussed with the on-call oncologist who recommended discharging home with follow-up tomorrow. He recommended giving a prescription for Levaquin that she should start if she has another fever. Source of Hx: Old records Re-Evaluation/Progress : Time of Eval: 20:05 Patient Status: Condition improved Re-Evaluation/Progress Note: Pt rechecked. Discussed plan for discharge. Pt agrees and understands plan. Gave all RTER and follow-up directions. All questions addresssed at this time. Consultation : Referral / Consult Name: Sergo Small MD Call Returned at: 21:03 Retail And Promotions Coordinator: Agrees with eval, Agrees with plan Note: Discussed pt's case with oncologist, Dr. Small. Recommends a prescription of Levaquin, and follow-up with her oncologist or pcp. Counseled Regarding: Diagnosis, Lab results, Need for follow-up, When/why to return to ED Discharge & Departure Impression: Primary Impression: Fever Fever type: unspecified Qualified Code: R50.9 - Fever, unspecified Disposition: Home Discharge Condition All VS Reviewed: Yes Condition: Stable Patient Instructions: Fever in Adults (ED) Additional Instructions: Thank you for trusting us with your care today. Your labs, examination, and imaging results were all reassuring. There is no dangerous cause for your symptoms at this time. Take Levaquin as needed if you have another fever. Please call in the morning to schedule a follow-up appointment with your oncologist or primary care doctor for a recheck. Please return to the emergency department if you are having any new or worsening symptoms, such as worsening fever, chills, nausea, shortness of breath , chest pain, lightheadedness, numbness/tingling, or weakness. Referrals: Nathaniel Longo MD (PCP) Scribe Attestation Portions of this note were transcribed by Ekaterina Drake. I, Dr. Gonzalez, personally performed the history, physical exam and medical decision-making; I reviewed and confirmed the accuracy of the information in the transcribed note. copies to: Nathaniel Longo MD, Ben M MD Apr 22, 2017 18:06 Ekaterina Drake Apr 22, 2017 18:59
[2017-04-22 18:51] LABS: Platelet Count 92 bil/L (150-400)
[2017-04-22 19:01] LABS: BASOPHILS % (AUTO) 0.2 % (0-3); EOSINOPHILS % (AUTO) 0.7 % (0-5); Mean Corpuscular Hemoglobin 30.9 pg (27.0-35.0); Mean Corpuscular Volume 94.3 fL (81-100); NEUTROPHILS % (AUTO) 65.8 % (40-74)
[2017-04-22] MEDS ORDERED: Ondansetron 2 mg/mL 2 mL Inj IVPUSH PRN (19:10)
--- NOTE | 2017-04-22 19:35 | DRSVH ---
PROCEDURE: X-RAY CHEST ONE VIEW, PORTABLE ([id number]) INDICATIONS: neutropenic fever TECHNIQUE: One view of the chest was acquired. COMPARISON: The recent prior plain films were reviewed. FINDINGS: Surgical changes and devices: Port-A-Cath from left sided approach appears in normal position. Lungs and pleura: No pleural effusions or pneumothorax. Lungs are mass lesion right upper lung has mildly diminished in size, and is indistinctly marginated.. Mediastinum: Mediastinal contours appear normal. Heart size is normal. Bones and chest wall: No suspicious bony lesions. Overlying soft tissues appear unremarkable. IMPRESSION: No pneumonia found. Mass lesion right upper lobe has diminished in size and is indistin ctly marginated. Port-A-Cath from left approach appears normal. Dictated by: Ravi Strauss M.D. on 04/22/2017 at 19:33 Approved by: Ravi Strauss M.D. on 04/22/2017 at 19:34
[2017-04-22] MEDS ORDERED: LEVO750T9 PO (21:06)
[2017-04-22 21:12] LABS: APPEARANCE,URINE CLEAR (CLEAR,HAZY); COLOR,URINE YELLOW (YELLOW); OCCULT BLOOD,URINE NEGATIVE (NEGATIVE); PH,URINE 6.5 (5.0-8.0); UROBILINOGEN,URINE NORMAL (NORMAL)
[2017-04-22] MEDS ORDERED: HepLOK Flush 100 unit/mL 5 mL Inj ONE (21:28)
[2017-04-22] MEDS ORDERED: levoFLOXacin 750 mg Tablet PO ONE (21:30)
[2017-04-22] MEDS ORDERED: levoFLOXacin 750 mg Tablet PO SCH (21:45)
[2017-04-22 22:18] VITALS: BP 145/74; PULSE 77; RESP 18; O2SAT 97
== END 2017-04-22 22:22 | disposition home or self-care (01) ==
LOC: SED 17:31
DX: R50.9 Fever, unspecified (principal); R53.83 Other fatigue; I11.9 Hypertensive heart disease without heart failure; I48.91 Unspecified atrial fibrillation; E78.5 Hyperlipidemia, unspecified; J44.9 Chronic obstructive pulmonary disease, unspecified; C34.10 Malignant neoplasm of upper lobe, unspecified bronchus or lung; Z51.11 Encounter for antineoplastic chemotherapy; Z86.73 Personal history of transient ischemic attack (TIA), and cerebral infarction without residual deficits; Z88.8 Allergy status to other drugs, medicaments and biological substances
CPT/HCPCS: 36415; 71010; 80053; 81000; 83605; 85025; 87040; 96374; 99285; J2405